=== PATIENT | male | born 1950 ===

== ENCOUNTER 2016-12-06 15:48 | Inpatient (IN) | payer MEDICARE ==
[2016-12-06 16:59] LABS: BASO # 0.1 K/uL (0.0-0.2); BASO % 0.8 % (0.0-2.0); EOS # 0.3 K/uL (0.0-0.7); EOS % 3.5 % (0.0-4.0); LYMPH # 3.4 K/uL (1.0-4.3); LYMPH % 37.2 % (20.0-40.0); MEAN CELL VOLUME 88.5 fL (80.0-94.0); MEAN CORPUSCULAR HEMOGLOBIN 29.7 pg (27.0-31.0); MEAN CORPUSCULAR HGB CONC 33.6 g/dL (33.0-37.0); MEAN PLATELET VOLUME 7.7 fL (7.2-11.7); MONO # 0.9 K/uL (0.0-0.8); MONO % 9.8 % (0.0-10.0); RED CELL DISTRIBUTION WIDTH 14.1 % (11.5-14.5); WHITE BLOOD COUNT 9.1 K/uL (4.8-10.8)
[2016-12-06 17:07] LABS: POTASSIUM 3.2 mmol/L (3.6-5.2)
[2016-12-06 17:09] LABS: BILIRUBIN,TOTAL 0.4 mg/dL (0.2-1.3); CALCIUM 8.7 mg/dl (8.6-10.4); TOTAL PROTEIN 6.4 g/dL (6.3-8.3)
[2016-12-06 17:13] LABS: RBC URINE 1 /hpf (0-3); URINE BACTERIA RARE (<OCC); URINE BILIRUBIN NEGATIVE (NEGATIVE); URINE BLOOD NEGATIVE (NEGATIVE); URINE COLOR Yellow (YELLOW); URINE GLUCOSE (UA) 3+ mg/dL (Normal); URINE KETONE NEGATIVE (NEGATIVE); URINE LEUKOCYTE ESTERASE NEG Leu/uL (Negative); URINE PROTEIN 3+ mg/dL (NEGATIVE); URINE UROBILINOGEN NORMAL mg/dL (0.2-1.0); WBC URINE 2 /hpf (0-5)
--- NOTE | 2016-12-06 17:27 | C.PDOC ---
History Of Present Illness 66 year old male with a history of Diabetes and kidney disease was referred by his PMD to the ED for likely admission and consideration for dialysis. Patient has fluid overload despite PO diuretics. He denies any physical symptoms at this time. Time Seen by Provider: 12/06/16 16:19 Chief Complaint (Nursing): Abnormal Labs History Per: Patient History/Exam Limitations: no limitations Onset/Duration Of Symptoms: Hrs Current Symptoms Are (Timing): Still Present Reports Recently: Treated By A Physician (PMD) Recent travel outside of the [place]: No Additional History Per: Prior Records Past Medical History Reviewed: Historical Data, Nursing Documentation, Vital Signs Vital Signs: Last Vital Signs Temp 98.6 F 12/06/16 16:02 Pulse 69 12/06/16 16:02 Resp 18 12/06/16 16:02 BP 129/71 12/06/16 16:02 Pulse Ox 95 12/06/16 17:32 - Medical History PMH: HTN Family History: States: Unknown Family Hx - Social History Hx Alcohol Use: No Hx Substance Use: No - Immunization History Hx Tetanus Toxoid Vaccination: No Hx Influenza Vaccination: Yes Hx Pneumococcal Vaccination: No Review Of Systems Constitutional: Negative for: Fever, Chills Cardiovascular: Negative for: Chest Pain, Palpitations Respiratory: Negative for: Cough, Shortness of Breath Gastrointestinal: Negative for: Nausea, Vomiting, Abdominal Pain, Diarrhea Physical Exam - Physical Exam Appears: Non-toxic, No Acute Distress Skin: Warm, Dry Head: Atraumatic Eye(s): bilateral: Normal Inspection, EOMI Oral Mucosa: Moist Neck: Supple Chest: Symmetrical, No Deformity Cardiovascular: Rhythm Regular Respiratory: Other (scattered crackles at bilateral bases ) Gastrointestinal/Abdominal: Soft, No Tenderness, No Distention, No Guarding, No Rebound Extremity: Normal ROM, No Tenderness, No Calf Tenderness, Capillary Refill ( good capillary refill, less than two seconds ), No Deformity, No Swelling, Other (2+ pitting edema bilateral lower extremities ) Neurological/Psych: Oriented x3, Normal Speech, Normal Cognition, Normal Motor, Normal Sensation, Normal Reflexes Gait: Steady ED Course And Treatment - Laboratory Results Result Diagrams: 12/06/16 16:53 12/06/16 16:53 O2 Sat by Pulse Oximetry: 95 (room air ) Progress Note: EKG and CXR were performed. Medical Decision Making Medical Decision Making: discussed with Dr Patten, will admit to his service. Dr Frausto for consult. Disposition Discussed With Dr.: Ko Patten Doctor Will See Patient In The: Hospital - Disposition Disposition: HOSPITALIZED Disposition Time: 17:26 Condition: SERIOUS Forms: [facility] (Ukrainian) - Clinical Impression Clinical Impression: Acute renal failure, Fluid overload, unspecified - Scribe Statement The provider has reviewed the documentation as recorded by the Scribe Esther Luevano All medical record entries made by the Scribe were at my direction and personally dictated by me. I have reviewed the chart and agree that the record accurately reflects my personal performance of the history, physical exam, medical decision making, and the department course for this patient. I have also personally directed, reviewed, and agree with the discharge instructions and disposition. Decision To Admit - Pt Status Changed To: Hospital Disposition Of: Inpatient - Admit Certification Admit to Inpatient:: After my assessment, the patient will require hospitalization for at least two midnights. This is because of the severity of symptoms shown, intensity of services needed, and/or the medical risk in this patient being treated as an outpatient. - InPatient: Physician Admission Certification: I certify that this patient requires 2 or more midnights of care for the following reason:: for possible dialysus. diuresis - . Bed Request Type: Telemetry Patient Diagnosis: Acute renal failure, Fluid overload, unspecified
--- NOTE | 2016-12-06 19:08 | CP.PCM.CON ---
History of Present Illness - History of Present Illness History of Present Illness: SURGERY CONSULT NOTE FOR DR. RIVERA 66M presents with worsening uncontrolled diabetics. Patient was sent to the hospital by his PMD to recommend starting dialysis. Surgery consulted for Permacath placement for dialysis access due to his kidney disease also. PMH: Diabetes, kidney disease, retinopathy PSH: LLE specimen removal Social: admits to social alcohol and few cigarrettes, denies illicit drugs Allergies: NKDA Past Patient History - Infectious Disease Hx of Infectious Diseases: None - Past Social History Smoking Status: Current Some Days Smoker - CARDIAC Hx Hypertension: Yes - ENDOCRINE/METABOLIC Hx Diabetes Mellitus Type 2: Yes - PSYCHIATRIC Hx Substance Use: No - SURGICAL HISTORY Hx Surgeries: Yes Other/Comment: Left lower leg debridment two years ago. - ANESTHESIA Hx Anesthesia: Yes Hx Anesthesia Reactions: No Hx Malignant Hyperthermia: No Meds Allergies/Adverse Reactions: Allergies Allergy/AdvReac Type Severity Reaction Status Date / Time No Known Allergies Allergy Verified 12/06/16 16:00 - Medications Medications: Current Medications Heparin Sodium (Porcine) (Heparin) 5,000 units SC Q8 [facility] Physical Exam - Constitutional Appears: Non-toxic, No Acute Distress - Head Exam Head Exam: ATRAUMATIC - Eye Exam Additional comments: very poor vision - ENT Exam ENT Exam: Mucous Membranes Moist - Respiratory Exam Respiratory Exam: Clear to Auscultation Bilateral, NORMAL BREATHING PATTERN - Cardiovascular Exam Cardiovascular Exam: REGULAR RHYTHM, +S1, +S2 - GI/Abdominal Exam GI & Abdominal Exam: Soft. absent: Distended, Firm, Guarding, Rebound, Rigid, Tenderness - Extremities Exam Extremities exam: Negative for: pedal edema, tenderness Additional comments: left hyatt has scar from previous operation - Neurological Exam Neurological exam: Alert, Oriented x3 - Psychiatric Exam Psychiatric exam: Normal Affect, Normal Mood - Skin Skin Exam: Dry, Intact, Normal Color, Warm Results - Vital Signs Recent Vital Signs: Last Vital Signs Temp 98.6 F 12/06/16 16:02 Pulse 69 12/06/16 16:02 Resp 16 12/06/16 17:15 BP 129/71 12/06/16 16:02 Pulse Ox 95 12/06/16 17:39 - Labs Result Diagrams: 12/06/16 16:53 12/06/16 16:53 Assessment & Plan - Assessment and Plan (Free Text) Assessment: 66M with uncontrolled diabetes, with kidney disease, needs dialysis Plan: - NPO after midnight - Labs-coags - consented - Patient to go to OR tomorrow morning Discussed with Dr. Neo Bradshaw, PGY2
--- NOTE | 2016-12-06 19:31 | RAD ---
HISTORY: worsening renal failure with fluid overload COMPARISON: None available. TECHNIQUE: Chest PA and lateral FINDINGS: Examination limited by habitus. LUNGS: Mild bibasilar atelectasis. Please note that chest x-ray has limited sensitivity for the detection of pulmonary masses. PLEURA: Right apical pleural thickening or fluid. No definite pneumothorax . CARDIOVASCULAR: Heart size appears top normal. Tortuous aorta. Atherosclerotic calcifications. OSSEOUS STRUCTURES: Degenerative changes. VISUALIZED UPPER ABDOMEN: Unremarkable. OTHER FINDINGS: None. IMPRESSION: Bibasilar atelectasis. Right apical pleural thickening or fluid.
--- NOTE | 2016-12-06 19:48 | CP.PCM.HP ---
History of Present Illness - History of Present Illness History of Present Illness: PGY1 Medicine Note for Dr. Stanford 66 year old male with a past medical history of Diabetes, CKD and HTN. Patient comes into the ED by the recommendation of Dr. Frausto who told the patient that his Creatinine was worsening, along with increased lower extremity edema. The patient states that he has been dealing with worsening renal function for a few years. He states that he retains fluid and his legs well at times, but usually he is able to go to the doctor, get lasix and have the swelling resolve. He noticed approximately 10 days ago that his legs were getting worsening and the medications were no longer helping. He states that he feels completely normal, except he says he feels fatigued at times. Patient states that he is able to walk without any feeling of being SOB. Denies f/c, n/v, d/c, cp, lightheadedness, dizziness, cough or sore throat. Patient has diabetic retinopathy and has very low to little visual acuity. Legally blind. PMH: DM, CKD, HTN, Diabetic retinopathy, Diabetic nephropathy PSH: I&D on LE Family: Mother of complications of diabetes, Father of heart problems (unknown) Social: smokes 2 cigarettes/day, denies alcohol, denies illicit drug use ALL: NKDA Present on Admission - Present on Admission Any Indicators Present on Admission: Yes History of Uncontrolled Diabetes: Yes Review of Systems - Review of Systems All systems: reviewed and no additional remarkable complaints except - Constitutional Constitutional: As Per HPI - EENT Eyes: As Per HPI Ears: As Per HPI Nose/Mouth/Throat: As Per HPI - Cardiovascular Cardiovascular: As Per HPI - Respiratory Respiratory: As Per HPI - Gastrointestinal Gastrointestinal: As Per HPI - Genitourinary Genitourinary: As Per HPI - Reproductive: Male Reproductive:Male: As Per HPI - Musculoskeletal Musculoskeletal: As Per HPI - Integumentary Integumentary: As Per HPI - Neurological Neurological: As Per HPI - Psychiatric Psychiatric: As Per HPI - Endocrine Endocrine: As Per HPI - Hematologic/Lymphatic Hematologic: As Per HPI Past Patient History - Infectious Disease Hx of Infectious Diseases: None - Past Social History Smoking Status: Current Some Days Smoker - CARDIAC Hx Hypertension: Yes - ENDOCRINE/METABOLIC Hx Diabetes Mellitus Type 2: Yes - PSYCHIATRIC Hx Substance Use: No - SURGICAL HISTORY Hx Surgeries: Yes Other/Comment: Left lower leg debridment two years ago. - ANESTHESIA Hx Anesthesia: Yes Hx Anesthesia Reactions: No Hx Malignant Hyperthermia: No Meds Allergies/Adverse Reactions: Allergies Allergy/AdvReac Type Severity Reaction Status Date / Time No Known Allergies Allergy Verified 12/06/16 16:00 Physical Exam - Constitutional Appears: Non-toxic, No Acute Distress - Head Exam Head Exam: ATRAUMATIC, NORMOCEPHALIC - Eye Exam Additional comments: Patient is blind due to diabetic retinopathy - ENT Exam ENT Exam: Mucous Membranes Moist - Respiratory Exam Respiratory Exam: Clear to Auscultation Bilateral, NORMAL BREATHING PATTERN. absent: Accessory Muscle Use, Respiratory Distress - Cardiovascular Exam Cardiovascular Exam: REGULAR RHYTHM, +S1, +S2 - GI/Abdominal Exam GI & Abdominal Exam: Normal Bowel Sounds, Soft - Extremities Exam Extremities exam: Positive for: joint swelling, pedal edema, pedal pulses present. 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 Frausto Baseline Cr 4 - elevated today at 5.4 Restarted home medications Lasix 40mg PO BID Coreg 25mg PO BID Metolazone 5mg daily Vascular Surgery Consulted - Dr. Larson - Vascular access needed to start dialysis tomorrow - On schedule at 8 am for Portacath placement - NPO at midnight - Hold heparin 6 hours prior to surgery f/u nepho/surg recs HTN Restart home meds: Lasix 40mg PO BID Coreg 25mg PO BID Metolazone 5mg daily Diabetes Restart home medication regiment Lantus 15units in AM; 30units HS Only give 12 units of Lantus tonight due to patient NPO at midnight for procedure tomorrow morning Glimepiride 4mg PO BID Diabetic Retinopathy Visually impaired Patient uses Besifloxacin HCL 5ml drops daily at home - non on formulary. Pharmacy is attempting to find proper replacement/will talk to patient to see if it is possible to bring in home medication. Case discussed with Dr. Hien Realn PGY1 - Date & Time Date: 12/06/16 Time: 17:05
[2016-12-06] MEDS ORDERED: (Lantus) Insulin Glargine, Recombinant SC SCH (22:00)
[2016-12-06] MEDS ORDERED: (Lantus) Insulin Glargine, Recombinant SC ONE (22:00)
[2016-12-07] MEDS ORDERED: Potassium Chloride 20 mEq ER Tab PO ONE (00:30)
[2016-12-07] MEDS ORDERED: metOLazone 5 MG TAB PO STA (04:21)
[2016-12-07] MEDS ORDERED: HEPARIN-NS 5,000 UNITS/500 ML 5,000 UNIT/500 ML BAG IV ONE (07:32)
[2016-12-07] MEDS ORDERED: ceFAZolin IV 2 gm in Dextrose 1 GM/50 ML BAG IVPB ONE (07:32)
[2016-12-07] MEDS ORDERED: Lidocaine 1% Inj (20ml) ONE (07:32)
[2016-12-07 07:33] LABS: INR 1.1
[2016-12-07 07:36] LABS: BASO % 0.6 % (0.0-2.0); EOS # 0.3 K/uL (0.0-0.7); EOS % 3.3 % (0.0-4.0); HEMATOCRIT 32.2 % (35.0-51.0); LYMPH # 2.6 K/uL (1.0-4.3); LYMPH % 31.6 % (20.0-40.0); MEAN CELL VOLUME 87.7 fL (80.0-94.0); MEAN CORPUSCULAR HEMOGLOBIN 29.2 pg (27.0-31.0); MEAN CORPUSCULAR HGB CONC 33.3 g/dL (33.0-37.0); MEAN PLATELET VOLUME 8.1 fL (7.2-11.7); MONO # 0.7 K/uL (0.0-0.8); MONO % 8.1 % (0.0-10.0); RED CELL DISTRIBUTION WIDTH 14.1 % (11.5-14.5); WHITE BLOOD COUNT 8.2 K/uL (4.8-10.8)
[2016-12-07 08:15] LABS: POTASSIUM 3.2 mmol/L (3.6-5.2)
[2016-12-07 08:17] LABS: ALB/GLOB RATIO 0.9 (1.0-2.1); BILIRUBIN,TOTAL 0.5 mg/dL (0.2-1.3); TOTAL PROTEIN 6.1 g/dL (6.3-8.3)
[2016-12-07 08:18] LABS: CALCIUM 8.7 mg/dl (8.6-10.4)
[2016-12-07] MEDS ORDERED: Sodium Chloride 0.9% 500 ML IV ONE (08:20)
[2016-12-07] MEDS ORDERED: Midazolam 2 MG/2 ML VIAL ONE (08:22)
[2016-12-07] MEDS: Lidocaine 1% Inj (20ml) ONE ×2 (08:40→08:58)
--- NOTE | 2016-12-07 09:18 | PCM.SURG1 ---
Surgeon's Initial Post Op Note - Surgeon's Notes Surgeon: [facility] Epidemiologist: Tha BradshawY2 Pre-Operative Diagnosis: Kidney disease Operative Findings: n/a Post-Operative Diagnosis: same Operation Performed: left Internal jugular permacath placement Specimen/Specimens Removed: n/a Estimated Blood Loss: EBL {In ML}: 10 Date of Surgery/Procedure: 12/07/16 Time of Surgery/Procedure: 08:30
--- NOTE | 2016-12-07 09:55 | RAD ---
HISTORY: s/p permacath COMPARISON: Chest x-ray performed 12/06/16 TECHNIQUE: Chest, one view. FINDINGS: Examination limited by habitus and hypoinflation. Right IJ approach central venous catheter terminates at the cavoatrial junction. LUNGS: No focal consolidation. Please note that chest x-ray has limited sensitivity for the detection of pulmonary masses. PLEURA: No significant pleural effusion identified. No definite pneumothorax . CARDIOVASCULAR: Cardiomegaly. Atherosclerotic calcifications of the aorta. OSSEOUS STRUCTURES: Degenerative changes. VISUALIZED UPPER ABDOMEN: Unremarkable. OTHER FINDINGS: None. IMPRESSION: Right IJ approach central venous catheter terminates at the cavoatrial junction.
[2016-12-07] MEDS: (Lantus) Insulin Glargine, Recombinant SC SCH ×2 (10:00→22:53)
[2016-12-07] MEDS ORDERED: metOLazone 5 MG TAB PO SCH (10:00)
[2016-12-07] MEDS ORDERED: Aritificial Tears (15ml) OU PRN (10:15)
--- NOTE | 2016-12-07 10:27 | CP.PCM.CON ---
History of Present Illness - History of Present Illness History of Present Illness: consult requested for initiation of HD 66 yo male with advancing renal failure due to DM, HTN. Now with resistance to diuretics. Pt to start HD. Has history of diabetic retinopathy and peripheral vascular disease. Decreased u/o. S/p permcath this am and first HD today. No family history of renal disease. Review of Systems - Constitutional Constitutional: Fatigue. absent: Fever - EENT Eyes: Change in Vision. absent: Itchy Eyes Nose/Mouth/Throat: absent: Nasal Congestion, Nasal Discharge - Cardiovascular Cardiovascular: Dyspnea. absent: Orthopnea, Rapid Heart Rate - Respiratory Respiratory: absent: Cough, Dyspnea - Gastrointestinal Gastrointestinal: absent: Abdominal Pain, Bloating - Genitourinary Genitourinary: absent: Difficulty Urinating - Psychiatric Psychiatric: absent: Anxiety, Behavioral Changes - Hematologic/Lymphatic Hematologic: absent: Easy Bleeding, Easy Bruising Past Patient History - Infectious Disease Hx of Infectious Diseases: None - Past Medical History & Family History Past Medical History?: Yes - Past Social History Smoking Status: Light Smoker < 10 Cigarettes Daily - CARDIAC Hx Hypertension: Yes - ENDOCRINE/METABOLIC Hx Diabetes Mellitus Type 2: Yes - MUSCULOSKELETAL/RHEUMATOLOGICAL Hx Falls: No - PSYCHIATRIC Hx Substance Use: Yes - SURGICAL HISTORY Hx Surgeries: Yes Other/Comment: Left lower leg debridment two years ago. - ANESTHESIA Hx Anesthesia: Yes Hx Anesthesia Reactions: No Hx Malignant Hyperthermia: No Meds Allergies/Adverse Reactions: Allergies Allergy/AdvReac Type Severity Reaction Status Date / Time No Known Allergies Allergy Verified 12/06/16 16:00 - Medications Medications: Current Medications Artificial Tears (Artificial Tears) 0 ml OU Q4H PRN PRN Reason: Dry eyes Aspirin (Ecotrin) 81 mg PO DAILY [facility] Carvedilol (Coreg) 25 mg PO BID [facility] Furosemide (Lasix) 40 mg PO BID [facility] Glimepiride (Amaryl) 4 mg PO BID [facility] Heparin Sodium (Porcine) (Heparin) 5,000 units SC Q8 [facility] Last Admin: 12/06/16 22:26 Dose: 5,000 units Insulin Glargine (Lantus) 15 unit SC DAILY [facility] Insulin Glargine (Lantus) 30 unit SC HS [facility] Pneumococcal Polyvalent Vaccine (Pneumovax 23 Vaccine) 0.5 ml IM .ONCE ONE Stop: 12/09/16 10:01 Rosuvastatin Calcium (Crestor) 10 mg PO HS [facility] Last Admin: 12/06/16 22:26 Dose: 10 mg Physical Exam - Constitutional Appears: Chronically Ill - Eye Exam Eye Exam: Normal appearance. absent: Scleral icterus - ENT Exam ENT Exam: Mucous Membranes Moist - Neck Exam Neck exam: Positive for: Full Rom. Negative for: Lymphadenopathy - Respiratory Exam Respiratory Exam: Decreased Breath Sounds. absent: Wheezes - Cardiovascular Exam Cardiovascular Exam: REGULAR RHYTHM. absent: Rubs - GI/Abdominal Exam GI & Abdominal Exam: Distended, Firm. absent: Tenderness - Extremities Exam Extremities exam: Positive for: pedal edema - Neurological Exam Neurological exam: Alert, Oriented x3 - Psychiatric Exam Psychiatric exam: Anxious Results - Vital Signs Recent Vital Signs: Last Vital Signs Temp 97.1 F L 12/07/16 10:00 Pulse 63 12/07/16 10:00 Resp 13 12/07/16 10:00 BP 180/87 H 12/07/16 10:00 Pulse Ox 99 12/07/16 09:29 - Labs Result Diagrams: 12/07/16 07:12 12/07/16 07:12 Labs: Laboratory Results - last 24 hr 12/06/16 12/07/16 12/07/16 21:21 06:19 07:12 WBC 8.2 RBC 3.67 L Hgb 10.7 L Hct 32.2 L MCV 87.7 MCH 29.2 MCHC 33.3 RDW 14.1 Plt Count 364 MPV 8.1 Neut % (Auto) 56.4 Lymph % (Auto) 31.6 [place] % (Auto) 8.1 Eos % (Auto) 3.3 Baso % (Auto) 0.6 Neut # 4.6 Lymph # 2.6 [place] # 0.7 Eos # 0.3 Baso # 0.0 PT INR APTT Sodium Potassium Chloride Carbon Dioxide Anion Gap BUN Creatinine Est GFR ( Amer) Est GFR (Non-Af Amer) POC Glucose (mg/dL) 141 H 114 H Random Glucose Calcium Total Bilirubin AST ALT Alkaline Phosphatase Total Protein Albumin Globulin Albumin/Globulin Ratio Triglycerides Cholesterol LDL Cholesterol Direct HDL Cholesterol 12/07/16 12/07/16 07:12 07:12 WBC RBC Hgb Hct MCV MCH MCHC RDW Plt Count MPV Neut % (Auto) Lymph % (Auto) [place] % (Auto) Eos % (Auto) Baso % (Auto) Neut # Lymph # [place] # Eos # Baso # PT 12.0 INR 1.1 APTT 33 Sodium 141 Potassium 3.2 L Chloride 101 Carbon Dioxide 28 Anion Gap 15 BUN 75 H Creatinine 5.2 H Est GFR ( Amer) 13 Est GFR (Non-Af Amer) 11 POC Glucose (mg/dL) Random Glucose 101 Calcium 8.7 Total Bilirubin 0.5 AST 14 L ALT 22 Alkaline Phosphatase 68 Total Protein 6.1 L Albumin 2.9 L Globulin 3.2 Albumin/Globulin Ratio 0.9 L Triglycerides 156 H Cholesterol 108 LDL Cholesterol Direct 43 HDL Cholesterol 31 Assessment & Plan - Assessment and Plan (Free Text) Assessment: diabetic kidney disease, to initiate HD first HD today for hetal and placement this week d/c metolozone 3 K bath on Hd
[2016-12-07 11:53] LABS: PHOSPHOROUS 5.2 mg/dL (2.5-4.5)
--- NOTE | 2016-12-07 20:50 | CP.PCM.PN ---
<Randolph Li H - Last Filed: 12/07/16 21:10> Subjective - Date & Time of Evaluation Date of Evaluation: 12/07/16 Time of Evaluation: 11:30 - Subjective Subjective: Dr. Patten service: Patient seen with his and daughter present. Unable to obtain history from patient but he is resting in bed comfortable. Plan discussed with patient's . Objective - Vital Signs/Intake and Output Vital Signs (last 24 hours): Temp Pulse Resp BP Pulse Ox 98.6 F 66 20 150/77 98 12/07/16 16:00 12/07/16 16:00 12/07/16 16:00 12/07/16 16:00 12/07/16 16:00 - Medications Medications: Current Medications Artificial Tears (Artificial Tears) 0 ml OU Q4H PRN PRN Reason: Dry eyes Aspirin (Ecotrin) 81 mg PO DAILY [facility] Carvedilol (Coreg) 25 mg PO BID [facility] Furosemide (Lasix) 40 mg PO BID [facility] Glimepiride (Amaryl) 4 mg PO BID [facility] Heparin Sodium (Porcine) (Heparin) 5,000 units SC Q8 [facility] Last Admin: 12/06/16 22:26 Dose: 5,000 units Insulin Glargine (Lantus) 15 unit SC DAILY [facility] Insulin Glargine (Lantus) 30 unit SC HS [facility] Pneumococcal Polyvalent Vaccine (Pneumovax 23 Vaccine) 0.5 ml IM .ONCE ONE Stop: 12/09/16 10:01 Rosuvastatin Calcium (Crestor) 10 mg PO HS [facility] Last Admin: 12/06/16 22:26 Dose: 10 mg - Labs Labs: 12/07/16 07:12 12/07/16 07:12 PT 12.0 SECONDS (9.7-12.2) 12/07/16 07:12 INR 1.1 12/07/16 07:12 APTT 33 SECONDS (21-34) 12/07/16 07:12 - Constitutional Appears: Non-toxic, No Acute Distress - Respiratory Exam Respiratory Exam: Clear to Ausculation Bilateral. absent: Rhonchi, Wheezes - Cardiovascular Exam Cardiovascular Exam: REGULAR RHYTHM, RRR, +S1, +S2. 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 Will need dialysis placement for discharge. Nephro consulted - Dr. Frausto Baseline Cr 4 - elevated today at 5.4 Restarted home medications Lasix 40mg PO BID Coreg 25mg PO BID Metolazone 5mg daily Vascular Surgery Consulted - Dr. Larson - Vascular access needed to start dialysis tomorrow - On schedule at 8 am for Portacath placement - NPO at midnight - Hold heparin 6 hours prior to surgery f/u nepho/surg recs HTN Restart home meds: Lasix 40mg PO BID Coreg 25mg PO BID Metolazone 5mg daily Diabetes Restart home medication regiment Lantus 15units in AM; 30units HS Only give 12 units of Lantus tonight due to patient NPO at midnight for procedure tomorrow morning Glimepiride 4mg PO BID Diabetic Retinopathy Visually impaired Patient uses Besifloxacin HCL 5ml drops daily at home - non on formulary. Pharmacy is attempting to find proper replacement/will talk to patient to see if it is possible to bring in home medication. Case discussed with Dr. Stanford <Ko Patten - Last Filed: 12/08/16 14:36> Objective - Vital Signs/Intake and Output Vital Signs (last 24 hours): Temp Pulse Resp BP Pulse Ox 98.4 F 66 20 170/91 H 96 12/08/16 10:11 12/08/16 10:11 12/08/16 10:11 12/08/16 10:48 12/08/16 10:11 Intake and Output: 12/08/16 12/08/16 06:59 18:59 Intake Total 600 Output Total 750 Balance -150 - Medications Medications: Current Medications Artificial Tears (Artificial Tears) 0 ml OU Q4H PRN PRN Reason: Dry eyes Aspirin (Ecotrin) 81 mg PO DAILY [facility] Last Admin: 12/08/16 10:48 Dose: 81 mg Carvedilol (Coreg) 25 mg PO BID [facility] Last Admin: 12/08/16 10:47 Dose: 25 mg Furosemide (Lasix) 40 mg PO BID [facility] Last Admin: 12/08/16 10:48 Dose: 40 mg Glimepiride (Amaryl) 4 mg PO BID [facility] Last Admin: 12/08/16 10:47 Dose: 4 mg Heparin Sodium (Porcine) (Heparin) 5,000 units SC Q8 [facility] Last Admin: 12/06/16 22:26 Dose: 5,000 units Insulin Glargine (Lantus) 15 unit SC DAILY [facility] Last Admin: 12/08/16 10:49 Dose: 15 units Insulin Glargine (Lantus) 30 unit SC HS [facility] Last Admin: 12/07/16 22:53 Dose: 30 units Pneumococcal Polyvalent Vaccine (Pneumovax 23 Vaccine) 0.5 ml IM .ONCE ONE Stop: 12/09/16 10:01 Rosuvastatin Calcium (Crestor) 10 mg PO HS [facility] Last Admin: 12/07/16 22:51 Dose: 10 mg - Labs Labs: 12/08/16 08:41 12/08/16 08:41 PT 12.0 SECONDS (9.7-12.2) 12/07/16 07:12 INR 1.1 12/07/16 07:12 APTT 33 SECONDS (21-34) 12/07/16 07:12 Attending/Attestation - Attestation I have personally seen and examined this patient.: Yes I have fully participated in the care of the patient.: Yes I have reviewed all pertinent clinical information, including history, physical exam and plan: Yes Notes (Text): 12/08/16 14:36 Patient was seen and examined at bedside Patient to is status post hemodialysis catheter placement Scheduled for hemodialysis today I discussed the plan of care with the resident and agree with the assessment plan recommended.
[2016-12-08] MEDS ORDERED: Potassium Chloride 20 mEq ER Tab PO ONE ×2 (00:07→23:53)
[2016-12-08 09:07] LABS: BASO % 0.4 % (0.0-2.0); EOS # 0.2 K/uL (0.0-0.7); EOS % 2.4 % (0.0-4.0); HEMATOCRIT 31.1 % (35.0-51.0); LYMPH # 2.7 K/uL (1.0-4.3); LYMPH % 29.4 % (20.0-40.0); MEAN CELL VOLUME 88.3 fL (80.0-94.0); MEAN CORPUSCULAR HEMOGLOBIN 29.1 pg (27.0-31.0); MEAN PLATELET VOLUME 8.1 fL (7.2-11.7); MONO # 1.1 K/uL (0.0-0.8); RED CELL DISTRIBUTION WIDTH 14.1 % (11.5-14.5); WHITE BLOOD COUNT 9.2 K/uL (4.8-10.8)
[2016-12-08 09:34] LABS: BILIRUBIN,TOTAL 0.3 mg/dL (0.2-1.3); CALCIUM 8.5 mg/dl (8.6-10.4); POTASSIUM 3.7 mmol/L (3.6-5.2); TOTAL PROTEIN 5.9 g/dL (6.3-8.3)
--- NOTE | 2016-12-08 09:57 | CP.PCM.PN ---
Subjective - Date & Time of Evaluation Date of Evaluation: 12/08/16 Time of Evaluation: 06:50 - Subjective Subjective: Vascular surgery Pt S&E, NAEO. No pain or swelling at Permacath site. No Complaints Objective - Vital Signs/Intake and Output Vital Signs (last 24 hours): Temp Pulse Resp BP Pulse Ox 98.1 F 65 20 165/84 H 98 12/08/16 05:00 12/08/16 07:40 12/08/16 05:00 12/08/16 05:00 12/08/16 05:00 Intake and Output: 12/08/16 12/08/16 06:59 18:59 Intake Total 600 Output Total 750 Balance -150 - Medications Medications: Current Medications Artificial Tears (Artificial Tears) 0 ml OU Q4H PRN PRN Reason: Dry eyes Aspirin (Ecotrin) 81 mg PO DAILY [facility] Carvedilol (Coreg) 25 mg PO BID [facility] Last Admin: 12/07/16 21:00 Dose: 25 mg Furosemide (Lasix) 40 mg PO BID [facility] Last Admin: 12/07/16 21:00 Dose: 40 mg Glimepiride (Amaryl) 4 mg PO BID [facility] Heparin Sodium (Porcine) (Heparin) 5,000 units SC Q8 [facility] Last Admin: 12/06/16 22:26 Dose: 5,000 units Insulin Glargine (Lantus) 15 unit SC DAILY [facility] Insulin Glargine (Lantus) 30 unit SC [facility] Last Admin: 12/07/16 22:53 Dose: 30 units Pneumococcal Polyvalent Vaccine (Pneumovax 23 Vaccine) 0.5 ml IM .ONCE ONE Stop: 12/09/16 10:01 Rosuvastatin Calcium (Crestor) 10 mg PO [facility] Last Admin: 12/07/16 22:51 Dose: 10 mg - Labs Labs: 12/08/16 08:41 12/08/16 08:41 PT 12.0 SECONDS (9.7-12.2) 12/07/16 07:12 INR 1.1 12/07/16 07:12 APTT 33 SECONDS (21-34) 12/07/16 07:12 - Constitutional Appears: Non-toxic, No Acute Distress - Head Exam Head Exam: ATRAUMATIC, NORMOCEPHALIC - Respiratory Exam Respiratory Exam: NORMAL BREATHING PATTERN Additional comments: L IJ permacath in place, no swelling, erythema, or TTP. - Neurological Exam Neurological Exam: Alert, Awake - Skin Skin Exam: Dry, Warm Assessment and Plan - Assessment and Plan (Free Text) Assessment: 66M with CKD, s/p LIJ permacath POD#1 Plan: Awaiting Vein mapping L limb alert in place D/W Dr. Neo Hull PGY4
[2016-12-08] MEDS ORDERED: metOLazone 5 MG TAB PO SCH (10:00)
[2016-12-08] MEDS: (Lantus) Insulin Glargine, Recombinant SC SCH ×2 (10:49→22:16)
--- NOTE | 2016-12-08 12:27 | OP ---
PROCEDURE DATE: 12/07/2016 PREOPERATIVE DIAGNOSIS: Renal failure. POSTOPERATIVE DIAGNOSIS: Renal failure. PROCEDURE CARRIED OUT: Placement of PermCath, right jugular vein with C-arm fluoroscopy, ultrasound guidance and micropuncture technique. SURGEON: Joselito Larson Jr., MD PROMOTION MANAGER: ____. ANESTHESIOLOGIST: Dr. Baker. INDICATIONS: The patient is a 66-year-old male with renal insufficiency, who now requires dialysis. OPERATIVE FINDINGS: Catheter was inserted uneventfully into the jugular vein. Using ultrasound guidance and micropuncture technique, the right jugular vein was cannulated. Under fluoroscopic control, a guidewire was advanced centrally. This was subsequently exchanged for an 0.035 wire and a sheath dilator was passed over this. Catheter was positioned at the tip of the superior vena cava and right atrium. Initially there were some problems with flow in the one of the ports and this was eventually adjusted and there was no problem with the flow. After this had been done, I secured the catheter to the skin and we applied dressing to the wound. Blood loss of the procedure was less than 20 mL. Operation carried out was PermCath, right jugular vein with C-arm fluoroscopy, ultrasound-guided puncture and micropuncture technique. Ultrasound images of the neck showed the vein was approximately 14 mm in diameter with normal compressibility and no evidence of intraluminal thrombosis. Joselito Larson Jr., MD
--- NOTE | 2016-12-08 15:34 | CP.PCM.PN ---
<Ko Patten M - Last Filed: 12/08/16 16:49> Objective - Vital Signs/Intake and Output Vital Signs (last 24 hours): Temp Pulse Resp BP Pulse Ox 98.6 F 66 18 181/87 H 96 12/08/16 16:17 12/08/16 16:17 12/08/16 16:17 12/08/16 16:17 12/08/16 16:17 Intake and Output: 12/08/16 12/08/16 06:59 18:59 Intake Total 600 Output Total 750 Balance -150 - Medications Medications: Current Medications Artificial Tears (Artificial Tears) 0 ml OU Q4H PRN PRN Reason: Dry eyes Aspirin (Ecotrin) 81 mg PO DAILY [facility] Last Admin: 12/08/16 10:48 Dose: 81 mg Carvedilol (Coreg) 25 mg PO BID [facility] Last Admin: 12/08/16 10:47 Dose: 25 mg Furosemide (Lasix) 40 mg PO BID [facility] Last Admin: 12/08/16 10:48 Dose: 40 mg Glimepiride (Amaryl) 4 mg PO BID [facility] Last Admin: 12/08/16 10:47 Dose: 4 mg Heparin Sodium (Porcine) (Heparin) 5,000 units SC Q8 [facility] Last Admin: 12/06/16 22:26 Dose: 5,000 units Insulin Glargine (Lantus) 15 unit SC DAILY [facility] Last Admin: 12/08/16 10:49 Dose: 15 units Insulin Glargine (Lantus) 30 unit SC HS [facility] Last Admin: 12/07/16 22:53 Dose: 30 units Pneumococcal Polyvalent Vaccine (Pneumovax 23 Vaccine) 0.5 ml IM .ONCE ONE Stop: 12/09/16 10:01 Rosuvastatin Calcium (Crestor) 10 mg PO HS [facility] Last Admin: 12/07/16 22:51 Dose: 10 mg - Labs Labs: 12/08/16 08:41 12/08/16 08:41 PT 12.0 SECONDS (9.7-12.2) 12/07/16 07:12 INR 1.1 12/07/16 07:12 APTT 33 SECONDS (21-34) 12/07/16 07:12 Attending/Attestation - Attestation I have personally seen and examined this patient.: Yes I have fully participated in the care of the patient.: Yes I have reviewed all pertinent clinical information, including history, physical exam and plan: Yes Notes (Text): 12/08/16 16:49 Patient was seen and examined at bedside Patient appears comfortable and denies any pain Patient also denies any shortness of breath He is status post hemodialysis yesterday Further plan for hemodialysis as per renal I discussed the plan of care with the resident and agree with the assessment and plan documented. <Randolph Li H - Last Filed: 12/08/16 21:46> Subjective - Date & Time of Evaluation Date of Evaluation: 12/01/16 Time of Evaluation: 10:00 - Subjective Subjective: Dr. Patten service Patient is seen in room. He has no complaints of pain, nausea, vomiting, fever , or chills. Patient is for AVF fistula tomorrow. Objective - Vital Signs/Intake and Output Vital Signs (last 24 hours): Temp Pulse Resp BP Pulse Ox 98.4 F 66 20 170/91 H 96 12/08/16 10:11 12/08/16 10:11 12/08/16 10:11 12/08/16 10:48 12/08/16 10:11 Intake and Output: 12/08/16 12/08/16 06:59 18:59 Intake Total 600 Output Total 750 Balance -150 - Medications Medications: Current Medications Artificial Tears (Artificial Tears) 0 ml OU Q4H PRN PRN Reason: Dry eyes Aspirin (Ecotrin) 81 mg PO DAILY [facility] Last Admin: 12/08/16 10:48 Dose: 81 mg Carvedilol (Coreg) 25 mg PO BID [facility] Last Admin: 12/08/16 10:47 Dose: 25 mg Furosemide (Lasix) 40 mg PO BID [facility] Last Admin: 12/08/16 10:48 Dose: 40 mg Glimepiride (Amaryl) 4 mg PO BID [facility] Last Admin: 12/08/16 10:47 Dose: 4 mg Heparin Sodium (Porcine) (Heparin) 5,000 units SC Q8 [facility] Last Admin: 12/06/16 22:26 Dose: 5,000 units Insulin Glargine (Lantus) 15 unit SC DAILY [facility] Last Admin: 12/08/16 10:49 Dose: 15 units Insulin Glargine (Lantus) 30 unit SC HS [facility] Last Admin: 12/07/16 22:53 Dose: 30 units Pneumococcal Polyvalent Vaccine (Pneumovax 23 Vaccine) 0.5 ml IM .ONCE ONE Stop: 12/09/16 10:01 Rosuvastatin Calcium (Crestor) 10 mg PO HS [facility] Last Admin: 12/07/16 22:51 Dose: 10 mg - Labs Labs: 12/08/16 08:41 12/08/16 08:41 PT 12.0 SECONDS (9.7-12.2) 12/07/16 07:12 INR 1.1 12/07/16 07:12 APTT 33 SECONDS (21-34) 12/07/16 07:12 - Constitutional Appears: Non-toxic - Respiratory Exam Respiratory Exam: Clear to Ausculation Bilateral. absent: Rales, Rhonchi, Wheezes - Cardiovascular Exam Cardiovascular Exam: REGULAR RHYTHM, RRR, +S1, +S2. absent: Gallop, Rubs - Extremities Exam Extremities Exam: absent: Calf Tenderness - Skin Skin Exam: Normal Color. 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 12/07: Patient for permacathath and dialysis today. Will need dialysis placement for discharge. Nephro consulted - Dr. Frausto Baseline Cr 4 - elevated today at 5.4 Restarted home medications Lasix 40mg PO BID Coreg 25mg PO BID Metolazone 5mg daily Vascular Surgery Consulted - Dr. Larson - Vascular access needed to start dialysis tomorrow - On schedule at 8 am for Portacath placement - NPO at midnight - Hold heparin 6 hours prior to surgery f/u nepho/surg recs HTN Restart home meds: Lasix 40mg PO BID Coreg 25mg PO BID Metolazone 5mg daily Diabetes 12/08: half of night time inslin given, will need to watch BS closely. Restart home medication regiment Lantus 15units in AM; 30units HS Only give 12 units of Lantus tonight due to patient NPO at midnight for procedure tomorrow morning Glimepiride 4mg PO BID Diabetic Retinopathy Visually impaired Patient uses Besifloxacin HCL 5ml drops daily at home - non on formulary. Pharmacy is attempting to find proper replacement/will talk to patient to see if it is possible to bring in home medication.
[2016-12-09 07:40] LABS: INR 1.1
[2016-12-09 07:45] LABS: BASO % 0.4 % (0.0-2.0); EOS # 0.3 K/uL (0.0-0.7); EOS % 2.7 % (0.0-4.0); HEMATOCRIT 33.1 % (35.0-51.0); LYMPH # 2.7 K/uL (1.0-4.3); LYMPH % 28.4 % (20.0-40.0); MEAN CELL VOLUME 88.8 fL (80.0-94.0); MEAN CORPUSCULAR HEMOGLOBIN 29.3 pg (27.0-31.0); MEAN CORPUSCULAR HGB CONC 32.9 g/dL (33.0-37.0); MONO # 1.1 K/uL (0.0-0.8); MONO % 11.2 % (0.0-10.0); RED CELL DISTRIBUTION WIDTH 14.1 % (11.5-14.5); WHITE BLOOD COUNT 9.6 K/uL (4.8-10.8)
[2016-12-09 07:54] LABS: POTASSIUM 3.5 mmol/L (3.6-5.2)
[2016-12-09 07:56] LABS: BILIRUBIN,TOTAL 0.6 mg/dL (0.2-1.3)
[2016-12-09 07:57] LABS: CALCIUM 8.8 mg/dl (8.6-10.4); MAGNESIUM 1.7 mg/dL (1.6-2.3); TOTAL PROTEIN 6.5 g/dL (6.3-8.3)
[2016-12-09] MEDS: (Lantus) Insulin Glargine, Recombinant SC SCH ×2 (09:47→22:24)
[2016-12-09] MEDS ORDERED: Pneumococcal 23-Valent Vaccine IM ONE (10:00)
[2016-12-09] MEDS ORDERED: HEPARIN-NS 5,000 UNITS/500 ML 5,000 UNIT/500 ML BAG IV ONE (10:51)
[2016-12-09] MEDS ORDERED: ceFAZolin IV 1 gm in Dextrose 1 GM/50 ML BAG IVPB ONE (10:52)
[2016-12-09] MEDS ORDERED: Propofol 10 mg/ml Inj (20 ML) ONE (10:53)
[2016-12-09] MEDS ORDERED: Midazolam 2 MG/2 ML VIAL ONE (10:53)
[2016-12-09] MEDS ORDERED: ePHEDrine 50 mg/ml Inj ONE (10:59)
[2016-12-09] MEDS ORDERED: Succinylcholine Chloride 20 mg/ml Syr (5 ml) IV ONE (10:59)
[2016-12-09] MEDS ORDERED: Lidocaine Hydrochloride 5 ML INJ ONE (10:59)
[2016-12-09] MEDS ORDERED: Phenylephrine 10 mg/ml Inj ONE (10:59)
[2016-12-09] MEDS ORDERED: Atropine 0.4 mg/ml Inj (1 mL) ONE (10:59)
[2016-12-09] MEDS ORDERED: Sodium Chloride 0.9% 1,000 ML IV ONE (12:00)
[2016-12-09] MEDS ORDERED: ceFAZolin 1 gm FROZEN Premix 1 GM/50 ML ML IVPB ONE (12:36)
[2016-12-09] MEDS ORDERED: Papaverine Hydrochloride 30 mg/ml (2ml) ONE (12:55)
[2016-12-09] MEDS ORDERED: Sodium Chloride 0.9% 500 ML IV ONE (13:45)
--- NOTE | 2016-12-09 14:15 | PCM.SURG1 ---
Surgeon's Initial Post Op Note - Surgeon's Notes Surgeon: Neo Strap Maker: MARCI BradshawY2. Soraida Ojeda MS3 Pre-Operative Diagnosis: Renal failure Operative Findings: n/a Post-Operative Diagnosis: same Operation Performed: Jose AV fistula Specimen/Specimens Removed: n/a Estimated Blood Loss: EBL {In ML}: 10 Date of Surgery/Procedure: 12/09/16 Time of Surgery/Procedure: 12:30
--- NOTE | 2016-12-09 15:02 | CP.PCM.PN ---
Subjective - Date & Time of Evaluation Date of Evaluation: 12/09/16 Time of Evaluation: 15:01 - Subjective Subjective: een and examined leg swelling resolved tolerated hd well friday for hetal surgery today Objective - Vital Signs/Intake and Output Vital Signs (last 24 hours): Temp Pulse Resp BP Pulse Ox 99.1 F 69 12 143/72 100 12/09/16 14:14 12/09/16 14:30 12/09/16 14:30 12/09/16 14:30 12/09/16 14:30 Intake and Output: 12/09/16 12/09/16 06:59 18:59 Intake Total 400 Output Total 1275 Balance -875 - Medications Medications: Current Medications Artificial Tears (Artificial Tears) 0 ml OU Q4H PRN PRN Reason: Dry eyes Aspirin (Ecotrin) 81 mg PO DAILY [facility] Last Admin: 12/08/16 10:48 Dose: 81 mg Carvedilol (Coreg) 25 mg PO BID [facility] Last Admin: 12/09/16 09:47 Dose: 25 mg Furosemide (Lasix) 40 mg PO BID [facility] Last Admin: 12/09/16 09:49 Dose: 40 mg Glimepiride (Amaryl) 4 mg PO BID [facility] Last Admin: 12/08/16 19:00 Dose: 4 mg Heparin Sodium (Porcine) (Heparin) 5,000 units SC Q8 [facility] Last Admin: 12/06/16 22:26 Dose: 5,000 units Insulin Glargine (Lantus) 15 unit SC DAILY [facility] Last Admin: 12/09/16 09:47 Dose: Not Given Insulin Glargine (Lantus) 30 unit SC [facility] Last Admin: 12/08/16 22:16 Dose: 15 units Morphine Sulfate (Morphine) 1 mg IVP Q10M PRN PRN Reason: Pain, severe (8-10) Stop: 12/09/16 16:23 Oxycodone/Acetaminophen (Percocet 5/325 Mg Tab) 1 tab PO Q4H PRN PRN Reason: Pain, moderate (4-7) Stop: 12/12/16 14:17 Rosuvastatin Calcium (Crestor) 10 mg PO [facility] Last Admin: 12/08/16 22:10 Dose: 10 mg - Labs Labs: 12/09/16 07:21 12/09/16 07:21 PT 12.3 SECONDS (9.7-12.2) H 12/09/16 07:21 INR 1.1 12/09/16 07:21 APTT 33 SECONDS (21-34) 12/09/16 07:21 - Constitutional Appears: Non-toxic, No Acute Distress - Head Exam Head Exam: NORMAL INSPECTION - Eye Exam Eye Exam: Normal appearance - ENT Exam ENT Exam: Mucous Membranes Moist, Normal Exam - Neck Exam Neck Exam: Normal Inspection - Respiratory Exam Respiratory Exam: Clear to Ausculation Bilateral, NORMAL BREATHING PATTERN - Cardiovascular Exam Cardiovascular Exam: RRR - GI/Abdominal Exam GI & Abdominal Exam: Distended, Soft - Extremities Exam Extremities Exam: Normal Inspection Assessment and Plan (1) ESRD (end stage renal disease) Status: Acute (2) Anemia Status: Acute (3) Hypertension Status: Acute (4) Diabetic nephropathies Status: Acute - Assessment and Plan (Free Text) Assessment: maintain hd [facility] [employer] [facility] calcitriol outpt placement
--- NOTE | 2016-12-09 15:12 | RAD ---
PROCEDURE: Intraoperative Fluoroscopy. HISTORY: RENAL FAILURE FINDINGS: Fluoroscopic assistance was provided. Approximately 85.2 seconds fluoroscopy time utilized during this procedure. Radiation dose = 18.33 mGy. Please refer to the operative report from
--- NOTE | 2016-12-09 18:38 | CP.PCM.PN ---
<John David - Last Filed: 12/09/16 18:35> Subjective - Date & Time of Evaluation Date of Evaluation: 12/09/16 Time of Evaluation: 07:00 - Subjective Subjective: PGY1 Medicine Note for Dr. Calles Patient seen and examined at [facility] this morning. Patient is currently NPO because he is schedule with Dr. Larson later today for an AV fistula. Patient has no complaints at this time. Denies f/c, n/v, d/c, sob or cp. Objective - Vital Signs/Intake and Output Vital Signs (last 24 hours): Temp Pulse Resp BP Pulse Ox 98.5 F 69 12 156/83 H 100 12/09/16 15:30 12/09/16 15:30 12/09/16 15:30 12/09/16 15:30 12/09/16 15:30 Intake and Output: 12/09/16 12/09/16 06:59 18:59 Intake Total 400 Output Total 1275 Balance -875 - Medications Medications: Current Medications Artificial Tears (Artificial Tears) 0 ml OU Q4H PRN PRN Reason: Dry eyes Aspirin (Ecotrin) 81 mg PO DAILY [facility] Last Admin: 12/09/16 10:00 Dose: Not Given Carvedilol (Coreg) 25 mg PO BID [facility] Last Admin: 12/09/16 09:47 Dose: 25 mg Glimepiride (Amaryl) 4 mg PO BID [facility] Last Admin: 12/09/16 10:00 Dose: Not Given Heparin Sodium (Porcine) (Heparin) 5,000 units SC Q8 [facility] Last Admin: 12/06/16 22:26 Dose: 5,000 units Insulin Glargine (Lantus) 15 unit SC DAILY [facility] Last Admin: 12/09/16 09:47 Dose: Not Given Insulin Glargine (Lantus) 30 unit SC [facility] Last Admin: 12/08/16 22:16 Dose: 15 units Oxycodone/Acetaminophen (Percocet 5/325 Mg Tab) 1 tab PO Q4H PRN PRN Reason: Pain, moderate (4-7) Stop: 12/12/16 14:17 Rosuvastatin Calcium (Crestor) 10 mg PO HS [facility] Last Admin: 12/08/16 22:10 Dose: 10 mg - Labs Labs: 12/09/16 07:21 12/09/16 07:21 PT 12.3 SECONDS (9.7-12.2) H 12/09/16 07:21 INR 1.1 12/09/16 07:21 APTT 33 SECONDS (21-34) 12/09/16 07:21 - Constitutional Appears: Non-toxic, No Acute Distress - Head Exam Head Exam: ATRAUMATIC, NORMOCEPHALIC - Eye Exam Additional comments: Patient is 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 - ENT Exam ENT Exam: Mucous Membranes Moist - Respiratory Exam Respiratory Exam: Clear to Ausculation Bilateral, NORMAL BREATHING PATTERN. absent: Accessory Muscle Use, Respiratory Distress - Cardiovascular Exam Cardiovascular Exam: REGULAR RHYTHM, +S1, +S2 - GI/Abdominal Exam GI & Abdominal Exam: Soft, Normal Bowel Sounds. 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 Larson. Will f/ u surgical recs. 12/08: AV fistula tomorrow and then dialysis afterward. 12/07: Patient for permacathath and dialysis today. Will need dialysis placement for discharge. Nephro consulted - Dr. Frausto Baseline Cr 4 - elevated today at 5.4 Restarted home medications Lasix 40mg PO BID Coreg 25mg PO BID Metolazone 5mg daily Vascular Surgery Consulted - Dr. Larson f/u nepho/surg recs HTN Lasix 40mg PO BID Coreg 25mg PO BID Metolazone 5mg daily Diabetes 12/08: half of night time inslin given, will need to watch BS closely. Restart home medication regiment Lantus 15units in AM; 30units HS Glimepiride 4mg PO BID Diabetic Retinopathy Visually impaired Patient uses Besifloxacin HCL 5ml drops daily at home - non on formulary. Pharmacy is attempting to find proper replacement/will talk to patient to see if it is possible to bring in home medication. Case Discussed with Dr. Marli Realn PGY1 <Calles,Peter H - Last Filed: 12/10/16 07:14> Objective - Vital Signs/Intake and Output Vital Signs (last 24 hours): Temp Pulse Resp BP Pulse Ox 98.6 F 70 20 157/82 H 95 12/10/16 04:15 12/10/16 04:15 12/10/16 04:15 12/10/16 04:15 12/10/16 00:00 Intake and Output: 12/10/16 12/10/16 06:59 18:59 Intake Total 240 Output Total 500 Balance -260 - Medications Medications: Current Medications Artificial Tears (Artificial Tears) 0 ml OU Q4H PRN PRN Reason: Dry eyes Aspirin (Ecotrin) 81 mg PO DAILY [facility] Last Admin: 12/09/16 10:00 Dose: Not Given Carvedilol (Coreg) 25 mg PO BID [facility] Last Admin: 12/09/16 21:49 Dose: 25 mg Glimepiride (Amaryl) 4 mg PO BID [facility] Last Admin: 12/09/16 21:49 Dose: 4 mg Heparin Sodium (Porcine) (Heparin) 5,000 units SC Q8 [facility] Last Admin: 12/06/16 22:26 Dose: 5,000 units Insulin Glargine (Lantus) 15 unit SC DAILY [facility] Last Admin: 12/09/16 09:47 Dose: Not Given Insulin Glargine (Lantus) 30 unit SC HS [facility] Last Admin: 12/09/16 22:24 Dose: Not Given Oxycodone/Acetaminophen (Percocet 5/325 Mg Tab) 1 tab PO Q4H PRN PRN Reason: Pain, moderate (4-7) Stop: 12/12/16 14:17 Last Admin: 12/09/16 21:49 Dose: 1 tab Rosuvastatin Calcium (Crestor) 10 mg PO HS [facility] Last Admin: 12/09/16 21:49 Dose: 10 mg - Labs Labs: 12/09/16 07:21 12/09/16 07:21 PT 12.3 SECONDS (9.7-12.2) H 12/09/16 07:21 INR 1.1 12/09/16 07:21 APTT 33 SECONDS (21-34) 12/09/16 07:21 Attending/Attestation - Attestation I have personally seen and examined this patient.: Yes I have fully participated in the care of the patient.: Yes I have reviewed all pertinent clinical information, including history, physical exam and plan: Yes Notes (Text): Medical Attending: Patient was seen and examined by me, agree with the above note by the resident. The patient currently is getting dialysis via a permacath and is pending AV fistula placement Jerome Calles
[2016-12-09 19:18] LABS: CALCIUM 9.1 mg/dL (8.6-10.3)
[2016-12-09] MEDS: Oxycodone/Acetaminophen 5/325 mg Tab PO PRN (21:49)
[2016-12-09] MEDS ORDERED: (Lantus) Insulin Glargine, Recombinant SC ONE (22:23)
--- NOTE | 2016-12-09 23:54 | CARD ---
APPROVED REPORT EKG Measurement Heart [id number] ND [id number] <Conclusion> Sinus rhythm with 1st degree AV block Right bundle branch block Left anterior fascicular block Bifascicular block Abnormal ECG
[2016-12-10] MEDS ORDERED: Potassium Chloride 20 mEq ER Tab PO STA (00:13)
--- NOTE | 2016-12-10 02:49 | OP ---
PROCEDURE DATE: 12/09/2016 PREOPERATIVE DIAGNOSIS: Renal failure. POSTOPERATIVE DIAGNOSIS: Renal failure. PROCEDURE: Radiocephalic (Jose) fistula, left wrist. SURGEON: Dr. Larson. INTEGRITY ASSESSOR: *------*. ANESTHESIA ADMINISTERED BY: Donnie Marielle. The patient is an older middle-aged man with renal insufficiency, diabetes who now requires dialysis, recently had a catheter inserted. OPERATIVE FINDINGS: There was no cephalic vein in the upper portion of the arm at the wrist; however, there is a fairly good vein. The superficial radial artery had a weak pulse, so we went from the radial artery and the radial artery is very spasmodic. DESCRIPTION OF PROCEDURE: The patient was given general anesthesia and intravenous antibiotics. The arm was prepped and draped with Hibiclens. Vein mapping was carried out and the veins were identified. As I said, we discarded the idea of doing a snuffbox fistula because of poor pulsations, although present pulsations in the superficial radial artery. We then dissected out the radial artery at the wrist and we dissected out the adjacent cephalic vein. In a spatulated fashion using loop magnification, heparin anticoagulation anastomosis was carried out. There was excellent flow through the fistula. A tributary branch in the mid portion of the arm was then ligated. Blood loss in the procedure was approximately 10 mL to 15 mL. There were no operative complications. The heparin was not reversed at the end. The operation carried out is radiocephalic fistula, left wrist (Jose). Joselito Larson Jr., MD cc: Chris Rasmussen MD
[2016-12-10 07:20] LABS: BASO # 0.1 K/uL (0.0-0.2); BASO % 0.8 % (0.0-2.0); EOS # 0.3 K/uL (0.0-0.7); HEMATOCRIT 33.3 % (35.0-51.0); LYMPH # 2.8 K/uL (1.0-4.3); LYMPH % 26.7 % (20.0-40.0); MEAN CORPUSCULAR HGB CONC 32.6 g/dL (33.0-37.0); MEAN PLATELET VOLUME 7.7 fL (7.2-11.7); MONO # 1.3 K/uL (0.0-0.8); MONO % 12.2 % (0.0-10.0); RED CELL DISTRIBUTION WIDTH 13.7 % (11.5-14.5); WHITE BLOOD COUNT 10.4 K/uL (4.8-10.8)
[2016-12-10] MEDS: Oxycodone/Acetaminophen 5/325 mg Tab PO PRN ×2 (08:06→17:44)
[2016-12-10 08:13] LABS: POTASSIUM 3.6 mmol/L (3.6-5.2)
[2016-12-10 08:15] LABS: BILIRUBIN,TOTAL 0.7 mg/dL (0.2-1.3)
[2016-12-10 08:16] LABS: TOTAL PROTEIN 6.5 g/dL (6.3-8.3)
[2016-12-10 08:17] LABS: CALCIUM 8.8 mg/dl (8.6-10.4)
--- NOTE | 2016-12-10 09:19 | CP.PCM.PN ---
<John David - Last Filed: 12/10/16 16:22> Subjective - Date & Time of Evaluation Date of Evaluation: 12/10/16 Time of Evaluation: 09:16 - Subjective Subjective: PGY1 Medicine Note for Dr. Calles Patient seen and examined this morning at bedside. Patient states he is in no pain and currently has no complaints. Patient is tolerating his diet. Denies f/c , n/v, d/c, sob or cp. Objective - Vital Signs/Intake and Output Vital Signs (last 24 hours): Temp Pulse Resp BP Pulse Ox 98.6 F 73 20 165/84 H 95 12/10/16 04:15 12/10/16 09:07 12/10/16 04:15 12/10/16 09:07 12/10/16 00:00 Intake and Output: 12/10/16 12/10/16 06:59 18:59 Intake Total 240 Output Total 500 Balance -260 - Medications Medications: Current Medications Artificial Tears (Artificial Tears) 0 ml OU Q4H PRN PRN Reason: Dry eyes Aspirin (Ecotrin) 81 mg PO DAILY [facility] Last Admin: 12/09/16 10:00 Dose: Not Given Carvedilol (Coreg) 25 mg PO BID [facility] Last Admin: 12/09/16 21:49 Dose: 25 mg Glimepiride (Amaryl) 4 mg PO BID [facility] Last Admin: 12/09/16 21:49 Dose: 4 mg Heparin Sodium (Porcine) (Heparin) 5,000 units SC Q8 [facility] Last Admin: 12/06/16 22:26 Dose: 5,000 units Insulin Glargine (Lantus) 15 unit SC DAILY [facility] Last Admin: 12/09/16 09:47 Dose: Not Given Insulin Glargine (Lantus) 30 unit SC HS [facility] Last Admin: 12/09/16 22:24 Dose: Not Given Oxycodone/Acetaminophen (Percocet 5/325 Mg Tab) 1 tab PO Q4H PRN PRN Reason: Pain, moderate (4-7) Stop: 12/12/16 14:17 Last Admin: 12/10/16 08:06 Dose: 1 tab Rosuvastatin Calcium (Crestor) 10 mg PO HS [facility] Last Admin: 12/09/16 21:49 Dose: 10 mg - Labs Labs: 12/10/16 07:09 12/10/16 07:09 PT 12.3 SECONDS (9.7-12.2) H 12/09/16 07:21 INR 1.1 12/09/16 07:21 APTT 33 SECONDS (21-34) 12/09/16 07:21 - Constitutional Appears: Non-toxic, No Acute Distress - Eye Exam Additional comments: Patient legally blind. - ENT Exam ENT Exam: Mucous Membranes Moist - Respiratory Exam Respiratory Exam: Clear to Ausculation Bilateral, NORMAL BREATHING PATTERN. absent: Accessory Muscle Use, Rales, Wheezes, Respiratory Distress - Cardiovascular Exam Cardiovascular Exam: REGULAR RHYTHM, +S1, +S2 - GI/Abdominal Exam GI & Abdominal Exam: Soft, Normal Bowel Sounds. 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 Larson. Will f/ u surgical recs. 12/08: AV fistula tomorrow and then dialysis afterward. 12/07: Patient for permacathath and dialysis today. Will need dialysis placement for discharge. Nephro consulted - Dr. Frausto Baseline Cr 4 - elevated today at 5.4 Restarted home medications Lasix 40mg PO BID Coreg 25mg PO BID Metolazone 5mg daily Vascular Surgery Consulted - Dr. Larson f/u nepho/surg recs HTN Lasix 40mg PO BID Coreg 25mg PO BID Metolazone 5mg daily Diabetes 12/08: half of night time inslin given, will need to watch BS closely. Restart home medication regiment Lantus 15units in AM; 30units HS Glimepiride 4mg PO BID Diabetic Retinopathy Visually impaired Patient uses Besifloxacin HCL 5ml drops daily at home - non on formulary. Pharmacy is attempting to find proper replacement/will talk to patient to see if it is possible to bring in home medication. Case Discussed with Dr. Marli David PGY1 <Jerome Calles - Last Filed: 12/10/16 16:40> Objective - Vital Signs/Intake and Output Vital Signs (last 24 hours): Temp Pulse Resp BP Pulse Ox 98.5 F 69 20 162/80 H 96 12/10/16 15:05 12/10/16 15:05 12/10/16 15:05 12/10/16 15:05 12/10/16 15:05 Intake and Output: 12/10/16 12/10/16 06:59 18:59 Intake Total 240 400 Output Total 500 400 Balance -260 0 - Medications Medications: Current Medications Artificial Tears (Artificial Tears) 0 ml OU Q4H PRN PRN Reason: Dry eyes Aspirin (Ecotrin) 81 mg PO DAILY [facility] Last Admin: 12/10/16 10:23 Dose: 81 mg Carvedilol (Coreg) 25 mg PO BID [facility] Last Admin: 12/10/16 10:23 Dose: 25 mg Glimepiride (Amaryl) 4 mg PO BID [facility] Last Admin: 12/10/16 10:23 Dose: 4 mg Heparin Sodium (Porcine) (Heparin) 5,000 units SC Q8 [facility] Last Admin: 12/06/16 22:26 Dose: 5,000 units Insulin Glargine (Lantus) 15 unit SC DAILY [facility] Last Admin: 12/10/16 10:23 Dose: 15 units Insulin Glargine (Lantus) 30 unit SC HS [facility] Last Admin: 12/09/16 22:24 Dose: Not Given Oxycodone/Acetaminophen (Percocet 5/325 Mg Tab) 1 tab PO Q4H PRN PRN Reason: Pain, moderate (4-7) Stop: 12/12/16 14:17 Last Admin: 12/10/16 08:06 Dose: 1 tab Rosuvastatin Calcium (Crestor) 10 mg PO HS [facility] Last Admin: 12/09/16 21:49 Dose: 10 mg - Labs Labs: 12/10/16 07:09 12/10/16 07:09 PT 12.3 SECONDS (9.7-12.2) H 12/09/16 07:21 INR 1.1 12/09/16 07:21 APTT 33 SECONDS (21-34) 12/09/16 07:21 Attending/Attestation - Attestation I have personally seen and examined this patient.: Yes I have fully participated in the care of the patient.: Yes I have reviewed all pertinent clinical information, including history, physical exam and plan: Yes Notes (Text): 12/10/16 16:38 Medical attending: Patient was seen and examined by me, agrees the above note by emergency medical services coordinator. The patient is status post placement of left fistula. His fingers felt warm on exam, he also had a small thrill as well. When we asked him if he was having a lot of pain the patient stated that he does have pain but it is currently controlled at this time. Thank you very much, at this moment be waiting on hemodialysis placement. Jerome Calles
--- NOTE | 2016-12-10 09:47 | CP.PCM.PN ---
Subjective - Date & Time of Evaluation Date of Evaluation: 12/10/16 Time of Evaluation: 07:00 - Subjective Subjective: SURGERY NOTE FOR DR. RIVERA 66M seen and examined at bedside. Patient only complain of pain on the incision site. no hand pain. Objective - Vital Signs/Intake and Output Vital Signs (last 24 hours): Temp Pulse Resp BP Pulse Ox 98.6 F 73 20 165/84 H 95 12/10/16 04:15 12/10/16 09:07 12/10/16 04:15 12/10/16 09:07 12/10/16 00:00 Intake and Output: 12/10/16 12/10/16 06:59 18:59 Intake Total 240 Output Total 500 Balance -260 - Medications Medications: Current Medications Artificial Tears (Artificial Tears) 0 ml OU Q4H PRN PRN Reason: Dry eyes Aspirin (Ecotrin) 81 mg PO DAILY [facility] Last Admin: 12/09/16 10:00 Dose: Not Given Carvedilol (Coreg) 25 mg PO BID [facility] Last Admin: 12/09/16 21:49 Dose: 25 mg Glimepiride (Amaryl) 4 mg PO BID [facility] Last Admin: 12/09/16 21:49 Dose: 4 mg Heparin Sodium (Porcine) (Heparin) 5,000 units SC Q8 [facility] Last Admin: 12/06/16 22:26 Dose: 5,000 units Insulin Glargine (Lantus) 15 unit SC DAILY [facility] Last Admin: 12/09/16 09:47 Dose: Not Given Insulin Glargine (Lantus) 30 unit SC HS [facility] Last Admin: 12/09/16 22:24 Dose: Not Given Oxycodone/Acetaminophen (Percocet 5/325 Mg Tab) 1 tab PO Q4H PRN PRN Reason: Pain, moderate (4-7) Stop: 12/12/16 14:17 Last Admin: 12/10/16 08:06 Dose: 1 tab Rosuvastatin Calcium (Crestor) 10 mg PO [facility] Last Admin: 12/09/16 21:49 Dose: 10 mg - Labs Labs: 12/10/16 07:09 12/10/16 07:09 PT 12.3 SECONDS (9.7-12.2) H 12/09/16 07:21 INR 1.1 12/09/16 07:21 APTT 33 SECONDS (21-34) 12/09/16 07:21 - Constitutional Appears: Non-toxic, No Acute Distress - Neck Exam Additional comments: right permacath in place, dressing CDI - Respiratory Exam Respiratory Exam: Clear to Ausculation Bilateral, NORMAL BREATHING PATTERN - Cardiovascular Exam Cardiovascular Exam: REGULAR RHYTHM, +S1, +S2 - Extremities Exam Additional comments: left hand site of AVF dressing CDI. Thrill is palpable, no discoloration of hand - Neurological Exam Neurological Exam: Alert, Awake Assessment and Plan - Assessment and Plan (Free Text) Assessment: 66M s/p right IJ permacath placement POD 3, S/P left arm AVF POD1 Plan: - Monitor dressings on both site - continue to palpate for thrill - use permacath for dialysis access Discussed with Dr. Neo Bradshaw, PGY2
[2016-12-10] MEDS: (Lantus) Insulin Glargine, Recombinant SC SCH ×2 (10:23→21:35)
--- NOTE | 2016-12-10 16:10 | CP.PCM.PN ---
Subjective - Date & Time of Evaluation Date of Evaluation: 12/10/16 Time of Evaluation: 16:09 - Subjective Subjective: no complaints feels well slight pain in left wrist, avf fiistula site Objective - Vital Signs/Intake and Output Vital Signs (last 24 hours): Temp Pulse Resp BP Pulse Ox 98.5 F 69 20 162/80 H 96 12/10/16 15:05 12/10/16 15:05 12/10/16 15:05 12/10/16 15:05 12/10/16 15:05 Intake and Output: 12/10/16 12/10/16 06:59 18:59 Intake Total 240 400 Output Total 500 400 Balance -260 0 - Medications Medications: Current Medications Artificial Tears (Artificial Tears) 0 ml OU Q4H PRN PRN Reason: Dry eyes Aspirin (Ecotrin) 81 mg PO DAILY [facility] Last Admin: 12/10/16 10:23 Dose: 81 mg Carvedilol (Coreg) 25 mg PO BID [facility] Last Admin: 12/10/16 10:23 Dose: 25 mg Glimepiride (Amaryl) 4 mg PO BID [facility] Last Admin: 12/10/16 10:23 Dose: 4 mg Heparin Sodium (Porcine) (Heparin) 5,000 units SC Q8 [facility] Last Admin: 12/06/16 22:26 Dose: 5,000 units Insulin Glargine (Lantus) 15 unit SC DAILY [facility] Last Admin: 12/10/16 10:23 Dose: 15 units Insulin Glargine (Lantus) 30 unit SC HS [facility] Last Admin: 12/09/16 22:24 Dose: Not Given Oxycodone/Acetaminophen (Percocet 5/325 Mg Tab) 1 tab PO Q4H PRN PRN Reason: Pain, moderate (4-7) Stop: 12/12/16 14:17 Last Admin: 12/10/16 08:06 Dose: 1 tab Rosuvastatin Calcium (Crestor) 10 mg PO [facility] Last Admin: 12/09/16 21:49 Dose: 10 mg - Labs Labs: 12/10/16 07:09 12/10/16 07:09 PT 12.3 SECONDS (9.7-12.2) H 12/09/16 07:21 INR 1.1 12/09/16 07:21 APTT 33 SECONDS (21-34) 12/09/16 07:21 - Constitutional Appears: Non-toxic, No Acute Distress - Head Exam Head Exam: NORMAL INSPECTION - Eye Exam Eye Exam: Normal appearance - ENT Exam ENT Exam: Mucous Membranes Moist, Normal Exam - Neck Exam Neck Exam: Normal Inspection - Respiratory Exam Respiratory Exam: Clear to Ausculation Bilateral (lue avf, dressing minimal thrill), NORMAL BREATHING PATTERN - Cardiovascular Exam Cardiovascular Exam: REGULAR RHYTHM - GI/Abdominal Exam GI & Abdominal Exam: Soft, Normal Bowel Sounds - Extremities Exam Extremities Exam: Normal Inspection - Neurological Exam Neurological Exam: Alert, Oriented x3 Assessment and Plan (1) ESRD (end stage renal disease) Status: Acute (2) Anemia Status: Acute (3) Hypertension Status: Acute (4) Diabetic nephropathies Status: Acute - Assessment and Plan (Free Text) Assessment: maintain hd [facility] outpt placement
--- NOTE | 2016-12-11 06:16 | CP.PCM.PN ---
<John David - Last Filed: 12/11/16 13:32> Subjective - Date & Time of Evaluation Date of Evaluation: 12/11/16 Time of Evaluation: 06:15 - Subjective Subjective: PGY1 Medicine Note for Dr. Calles Patient seen and examined at [facility] this morning. Patient states he is feel well and does not have any pain or complaints at this time. He does not want to go to a subacute rehab. He states he will not go and wants to go home with his . Denies f/c, n/v, d/c, sob or cp. Objective - Vital Signs/Intake and Output Vital Signs (last 24 hours): Temp Pulse Resp BP Pulse Ox 98.2 F 70 20 167/80 H 96 12/11/16 01:00 12/11/16 04:00 12/11/16 01:00 12/11/16 01:00 12/11/16 01:00 Intake and Output: 12/10/16 12/11/16 18:59 06:59 Intake Total 400 Output Total 400 Balance 0 - Medications Medications: Current Medications Artificial Tears (Artificial Tears) 0 ml OU Q4H PRN PRN Reason: Dry eyes Aspirin (Ecotrin) 81 mg PO DAILY [facility] Last Admin: 12/10/16 10:23 Dose: 81 mg Carvedilol (Coreg) 25 mg PO BID [facility] Last Admin: 12/10/16 17:42 Dose: 25 mg Glimepiride (Amaryl) 4 mg PO BID [facility] Last Admin: 12/10/16 17:42 Dose: 4 mg Heparin Sodium (Porcine) (Heparin) 5,000 units SC Q8 [facility] Last Admin: 12/06/16 22:26 Dose: 5,000 units Insulin Glargine (Lantus) 15 unit SC DAILY [facility] Last Admin: 12/10/16 10:23 Dose: 15 units Insulin Glargine (Lantus) 30 unit SC [facility] Last Admin: 12/10/16 21:35 Dose: 30 units Oxycodone/Acetaminophen (Percocet 5/325 Mg Tab) 1 tab PO Q4H PRN PRN Reason: Pain, moderate (4-7) Stop: 12/12/16 14:17 Last Admin: 12/10/16 17:44 Dose: 1 tab Rosuvastatin Calcium (Crestor) 10 mg PO [facility] Last Admin: 12/10/16 21:30 Dose: 10 mg - Labs Labs: 12/10/16 07:09 12/10/16 07:09 PT 12.3 SECONDS (9.7-12.2) H 12/09/16 07:21 INR 1.1 12/09/16 07:21 APTT 33 SECONDS (21-34) 12/09/16 07:21 - Constitutional Appears: Non-toxic, No Acute Distress - Head Exam Head Exam: ATRAUMATIC, NORMOCEPHALIC - Eye Exam Additional comments: Legally blind - Respiratory Exam Respiratory Exam: Clear to Ausculation Bilateral, NORMAL BREATHING PATTERN. absent: Accessory Muscle Use, Rhonchi, Wheezes, Respiratory Distress - Cardiovascular Exam Cardiovascular Exam: REGULAR RHYTHM, +S1, +S2 - GI/Abdominal Exam GI & Abdominal Exam: Soft, Normal Bowel Sounds. 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 Larson. Will f/ u surgical recs. 12/08: AV fistula tomorrow and then dialysis afterward. 12/07: Patient for permacathath and dialysis today. Will need dialysis placement for discharge. Nephro consulted - Dr. Frausto Baseline Cr 4 - elevated today at 5.4 Restarted home medications Lasix 40mg PO BID Coreg 25mg PO BID Metolazone 5mg daily Vascular Surgery Consulted - Dr. Larson f/u nepho/surg recs HTN Lasix 40mg PO BID Coreg 25mg PO BID Metolazone 5mg daily Diabetes 12/08: half of night time inslin given, will need to watch BS closely. Restart home medication regiment Lantus 15units in AM; 30units HS Glimepiride 4mg PO BID Diabetic Retinopathy Visually impaired Patient uses Besifloxacin HCL 5ml drops daily at home - non on formulary. Pharmacy is attempting to find proper replacement/will talk to patient to see if it is possible to bring in home medication. Patient awaiting outpatient placement for Dialysis Case Discussed with Dr. Marli David PGY1 <Jerome Calles H - Last Filed: 12/11/16 18:06> Objective - Vital Signs/Intake and Output Vital Signs (last 24 hours): Temp Pulse Resp BP Pulse Ox 99.1 F 76 20 151/85 H 95 12/11/16 15:04 12/11/16 15:04 12/11/16 15:04 12/11/16 17:57 12/11/16 15:04 Intake and Output: 12/11/16 12/11/16 06:59 18:59 Intake Total 120 350 Output Total 775 500 Balance -655 -150 - Medications Medications: Current Medications Artificial Tears (Artificial Tears) 0 ml OU Q4H PRN PRN Reason: Dry eyes Aspirin (Ecotrin) 81 mg PO DAILY [facility] Last Admin: 12/11/16 13:24 Dose: 81 mg Carvedilol (Coreg) 25 mg PO BID [facility] Last Admin: 12/11/16 17:57 Dose: 25 mg Glimepiride (Amaryl) 4 mg PO BID [facility] Last Admin: 12/11/16 17:57 Dose: 4 mg Heparin Sodium (Porcine) (Heparin) 5,000 units SC Q8 [facility] Last Admin: 12/06/16 22:26 Dose: 5,000 units Insulin Glargine (Lantus) 15 unit SC DAILY [facility] Last Admin: 12/11/16 10:55 Dose: Not Given Insulin Glargine (Lantus) 30 unit SC HS [facility] Last Admin: 12/10/16 21:35 Dose: 30 units Oxycodone/Acetaminophen (Percocet 5/325 Mg Tab) 1 tab PO Q4H PRN PRN Reason: Pain, moderate (4-7) Stop: 12/12/16 14:17 Last Admin: 12/10/16 17:44 Dose: 1 tab Potassium Chloride (K-Dur 20 Meq Er Tab) 40 meq PO DAILY [facility] Last Admin: 12/11/16 13:24 Dose: 40 meq Rosuvastatin Calcium (Crestor) 10 mg PO HS [facility] Last Admin: 12/10/16 21:30 Dose: 10 mg - Labs Labs: 12/11/16 07:34 12/11/16 07:34 PT 12.3 SECONDS (9.7-12.2) H 12/09/16 07:21 INR 1.1 12/09/16 07:21 APTT 33 SECONDS (21-34) 12/09/16 07:21 Attending/Attestation - Attestation I have personally seen and examined this patient.: Yes I have fully participated in the care of the patient.: Yes I have reviewed all pertinent clinical information, including history, physical exam and plan: Yes Notes (Text): 12/11/16 18:01 Medical Attending: Patient was seen and examined by me. Agree with the above note by the resident. The patient was seen during HD, he did not have any new question at this time. As mentioned above he just had left AV fistula created. On exam he did not have bleeding, the dressing was dry and intact. His left hand was warm and he was able to squeeze my hand as well. At this time pending outpatient placement for HD thank you, Jerome Calles
[2016-12-11 07:41] LABS: BASO # 0.1 K/uL (0.0-0.2); BASO % 0.5 % (0.0-2.0); EOS # 0.3 K/uL (0.0-0.7); EOS % 2.8 % (0.0-4.0); HEMATOCRIT 31.6 % (35.0-51.0); LYMPH # 2.6 K/uL (1.0-4.3); LYMPH % 24.5 % (20.0-40.0); MEAN CELL VOLUME 88.9 fL (80.0-94.0); MEAN CORPUSCULAR HEMOGLOBIN 29.5 pg (27.0-31.0); MEAN CORPUSCULAR HGB CONC 33.2 g/dL (33.0-37.0); MONO # 1.3 K/uL (0.0-0.8); MONO % 12.5 % (0.0-10.0); RED CELL DISTRIBUTION WIDTH 13.5 % (11.5-14.5); WHITE BLOOD COUNT 10.8 K/uL (4.8-10.8)
[2016-12-11 07:57] LABS: POTASSIUM 3.5 mmol/L (3.6-5.2)
[2016-12-11 07:59] LABS: ALB/GLOB RATIO 0.9 (1.0-2.1); BILIRUBIN,TOTAL 0.6 mg/dL (0.2-1.3); TOTAL PROTEIN 6.5 g/dL (6.3-8.3)
[2016-12-11 08:00] LABS: CALCIUM 8.7 mg/dl (8.6-10.4)
--- NOTE | 2016-12-11 08:11 | CP.PCM.PN ---
Subjective - Date & Time of Evaluation Date of Evaluation: 12/11/16 Time of Evaluation: 07:15 - Subjective Subjective: SURGERY NOTE FOR DR. RIVERA 66M seen and examined at bedside. Patient state decrease in pain at incision site. Denies any acute events overnight. Objective - Vital Signs/Intake and Output Vital Signs (last 24 hours): Temp Pulse Resp BP Pulse Ox 98.2 F 70 20 167/80 H 96 12/11/16 01:00 12/11/16 04:00 12/11/16 01:00 12/11/16 01:00 12/11/16 01:00 Intake and Output: 12/11/16 12/11/16 06:59 18:59 Intake Total 120 Output Total 775 Balance -655 - Medications Medications: Current Medications Artificial Tears (Artificial Tears) 0 ml OU Q4H PRN PRN Reason: Dry eyes Aspirin (Ecotrin) 81 mg PO DAILY [facility] Last Admin: 12/10/16 10:23 Dose: 81 mg Carvedilol (Coreg) 25 mg PO BID [facility] Last Admin: 12/10/16 17:42 Dose: 25 mg Glimepiride (Amaryl) 4 mg PO BID [facility] Last Admin: 12/10/16 17:42 Dose: 4 mg Heparin Sodium (Porcine) (Heparin) 5,000 units SC Q8 [facility] Last Admin: 12/06/16 22:26 Dose: 5,000 units Insulin Glargine (Lantus) 15 unit SC DAILY [facility] Last Admin: 12/10/16 10:23 Dose: 15 units Insulin Glargine (Lantus) 30 unit SC [facility] Last Admin: 12/10/16 21:35 Dose: 30 units Oxycodone/Acetaminophen (Percocet 5/325 Mg Tab) 1 tab PO Q4H PRN PRN Reason: Pain, moderate (4-7) Stop: 12/12/16 14:17 Last Admin: 12/10/16 17:44 Dose: 1 tab Rosuvastatin Calcium (Crestor) 10 mg PO [facility] Last Admin: 12/10/16 21:30 Dose: 10 mg - Labs Labs: 12/11/16 07:34 12/10/16 07:09 PT 12.3 SECONDS (9.7-12.2) H 12/09/16 07:21 INR 1.1 12/09/16 07:21 APTT 33 SECONDS (21-34) 12/09/16 07:21 - Constitutional Appears: Non-toxic, No Acute Distress - Neck Exam Additional comments: right IJ permacath site CDI - Respiratory Exam Respiratory Exam: Clear to Ausculation Bilateral, NORMAL BREATHING PATTERN - Cardiovascular Exam Cardiovascular Exam: REGULAR RHYTHM, +S1, +S2 - Extremities Exam Additional comments: left arm AVF incision/dressing site CDI palpable thrill Assessment and Plan - Assessment and Plan (Free Text) Assessment: 66M s/p right IJ permacath POD4, s/p AVF POD2 - patient can receive dialysis at [facility] site - Await AVF maturation - Awaiting placement for patient for DC Further recs discuss with Dr. Neo Bradshaw, PGY2
[2016-12-11] MEDS: (Lantus) Insulin Glargine, Recombinant SC SCH ×2 (10:55→21:39)
[2016-12-11] MEDS: Potassium Chloride 20 mEq ER Tab PO SCH ×2 (10:55→13:24)
--- NOTE | 2016-12-11 14:51 | CP.PCM.PN ---
Subjective - Date & Time of Evaluation Date of Evaluation: 12/11/16 Time of Evaluation: 13:00 - Subjective Subjective: offers no complaints tolerated HD, 2 kg uf no chest pain no sob no abdominal pain no edema no rash no headache no dysuria no fever no arthralgias Objective - Vital Signs/Intake and Output Vital Signs (last 24 hours): Temp Pulse Resp BP Pulse Ox 98.7 F 68 15 153/96 H 98 12/11/16 09:15 12/11/16 12:00 12/11/16 11:30 12/11/16 12:15 12/11/16 12:15 Intake and Output: 12/11/16 12/11/16 06:59 18:59 Intake Total 120 Output Total 775 Balance -655 - Medications Medications: Current Medications Artificial Tears (Artificial Tears) 0 ml OU Q4H PRN PRN Reason: Dry eyes Aspirin (Ecotrin) 81 mg PO DAILY [facility] Last Admin: 12/11/16 13:24 Dose: 81 mg Carvedilol (Coreg) 25 mg PO BID [facility] Last Admin: 12/11/16 10:55 Dose: Not Given Glimepiride (Amaryl) 4 mg PO BID [facility] Last Admin: 12/11/16 10:55 Dose: Not Given Heparin Sodium (Porcine) (Heparin) 5,000 units SC Q8 [facility] Last Admin: 12/06/16 22:26 Dose: 5,000 units Insulin Glargine (Lantus) 15 unit SC DAILY [facility] Last Admin: 12/11/16 10:55 Dose: Not Given Insulin Glargine (Lantus) 30 unit SC [facility] Last Admin: 12/10/16 21:35 Dose: 30 units Oxycodone/Acetaminophen (Percocet 5/325 Mg Tab) 1 tab PO Q4H PRN PRN Reason: Pain, moderate (4-7) Stop: 12/12/16 14:17 Last Admin: 12/10/16 17:44 Dose: 1 tab Potassium Chloride (K-Dur 20 Meq Er Tab) 40 meq PO DAILY [facility] Last Admin: 12/11/16 13:24 Dose: 40 meq Rosuvastatin Calcium (Crestor) 10 mg PO [facility] Last Admin: 12/10/16 21:30 Dose: 10 mg - Labs Labs: 12/11/16 07:34 12/11/16 07:34 PT 12.3 SECONDS (9.7-12.2) H 12/09/16 07:21 INR 1.1 12/09/16 07:21 APTT 33 SECONDS (21-34) 12/09/16 07:21 - Constitutional Appears: Non-toxic - Head Exam Head Exam: ATRAUMATIC - Eye Exam Additional comments: legally blind - ENT Exam ENT Exam: Mucous Membranes Moist - Respiratory Exam Respiratory Exam: absent: Chest Wall Tenderness - Cardiovascular Exam Cardiovascular Exam: REGULAR RHYTHM. absent: Rubs - GI/Abdominal Exam GI & Abdominal Exam: Soft, Normal Bowel Sounds - Extremities Exam Extremities Exam: Pedal Edema Additional comments: left hetal with good bruit - Neurological Exam Neurological Exam: Alert Assessment and Plan - Assessment and Plan (Free Text) Assessment: new esrd dm htn has hetal and permcath can d/c when placement set up continue to challenge EDW
[2016-12-12 06:52] LABS: BASO # 0.1 K/uL (0.0-0.2); BASO % 0.6 % (0.0-2.0); EOS # 0.3 K/uL (0.0-0.7); EOS % 3.1 % (0.0-4.0); HEMATOCRIT 32.7 % (35.0-51.0); LYMPH # 2.4 K/uL (1.0-4.3); MEAN CELL VOLUME 88.7 fL (80.0-94.0); MEAN CORPUSCULAR HEMOGLOBIN 29.4 pg (27.0-31.0); MEAN CORPUSCULAR HGB CONC 33.2 g/dL (33.0-37.0); MEAN PLATELET VOLUME 7.9 fL (7.2-11.7); MONO # 1.2 K/uL (0.0-0.8); MONO % 13.2 % (0.0-10.0); NRBC % 0.1 % (0.0-2.0); RED CELL DISTRIBUTION WIDTH 13.6 % (11.5-14.5); WHITE BLOOD COUNT 9.2 K/uL (4.8-10.8)
[2016-12-12 07:42] LABS: POTASSIUM 3.6 mmol/L (3.6-5.2)
--- NOTE | 2016-12-12 07:42 | CP.PCM.PN ---
<John David - Last Filed: 12/12/16 13:54> Subjective - Date & Time of Evaluation Date of Evaluation: 12/12/16 Time of Evaluation: 07:30 - Subjective Subjective: PGY1 Medicine Note for Dr. Calles Patient seen and examined at [facility] this morning. Patient states he does not have any pain or complaints at this time except mild pain over his left wrist ( site of av fistula. He is tolerating his diet. Denies f/c, n/v, d/c, sob or cp. Objective - Vital Signs/Intake and Output Vital Signs (last 24 hours): Temp Pulse Resp BP Pulse Ox 97.8 F 74 20 161/89 H 98 12/12/16 04:40 12/12/16 04:40 12/12/16 04:40 12/12/16 04:40 12/12/16 04:40 Intake and Output: 12/12/16 12/12/16 06:59 18:59 Intake Total 120 Balance 120 - Medications Medications: Current Medications Artificial Tears (Artificial Tears) 0 ml OU Q4H PRN PRN Reason: Dry eyes Aspirin (Ecotrin) 81 mg PO DAILY [facility] Last Admin: 12/11/16 13:24 Dose: 81 mg Carvedilol (Coreg) 25 mg PO BID [facility] Last Admin: 12/11/16 17:57 Dose: 25 mg Glimepiride (Amaryl) 4 mg PO BID [facility] Last Admin: 12/11/16 17:57 Dose: 4 mg Heparin Sodium (Porcine) (Heparin) 5,000 units SC Q8 [facility] Last Admin: 12/06/16 22:26 Dose: 5,000 units Insulin Glargine (Lantus) 15 unit SC DAILY [facility] Last Admin: 12/11/16 10:55 Dose: Not Given Insulin Glargine (Lantus) 30 unit SC HS [facility] Last Admin: 12/11/16 21:39 Dose: 30 units Oxycodone/Acetaminophen (Percocet 5/325 Mg Tab) 1 tab PO Q4H PRN PRN Reason: Pain, moderate (4-7) Stop: 12/12/16 14:17 Last Admin: 12/10/16 17:44 Dose: 1 tab Potassium Chloride (K-Dur 20 Meq Er Tab) 40 meq PO DAILY [facility] Last Admin: 12/11/16 13:24 Dose: 40 meq Rosuvastatin Calcium (Crestor) 10 mg PO HS [facility] Last Admin: 12/11/16 21:39 Dose: 10 mg - Labs Labs: 12/12/16 06:39 12/11/16 07:34 PT 12.3 SECONDS (9.7-12.2) H 12/09/16 07:21 INR 1.1 12/09/16 07:21 APTT 33 SECONDS (21-34) 12/09/16 07:21 - Constitutional Appears: Non-toxic, No Acute Distress - Head Exam Head Exam: ATRAUMATIC, NORMOCEPHALIC - Eye Exam Additional comments: 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 - ENT Exam ENT Exam: Mucous Membranes Moist - Respiratory Exam Respiratory Exam: Clear to Ausculation Bilateral, NORMAL BREATHING PATTERN. absent: Accessory Muscle Use, Respiratory Distress - Cardiovascular Exam Cardiovascular Exam: REGULAR RHYTHM, +S1, +S2 - GI/Abdominal Exam GI & Abdominal Exam: Soft, Normal Bowel Sounds. absent: Distended, Guarding, Rigid, Tenderness - Extremities Exam Extremities Exam: absent: Calf Tenderness, Pedal Edema Additional comments: Palpable thrill over left wrist in place of AV fistula formation. LE pitting edema improved. Trace edema on left LE. 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 Still currently awaiting placement for outpatient dialysis. 12/09: Patient is schedule for AV fistula later today with Dr. Larson. Will f/ u surgical recs. 12/08: AV fistula tomorrow and then dialysis afterward. 12/07: Patient for permacathath and dialysis today. Will need dialysis placement for discharge. Nephro consulted - Dr. Frausto Baseline Cr 4 - elevated today at 5.4 Restarted home medications Lasix 40mg PO BID Coreg 25mg PO BID Metolazone 5mg daily Vascular Surgery Consulted - Dr. Larson f/u nepho/surg recs HTN Lasix 40mg PO BID Coreg 25mg PO BID Metolazone 5mg daily Diabetes 12/08: half of night time inslin given, will need to watch BS closely. Restart home medication regiment Lantus 15units in AM; 30units HS Glimepiride 4mg PO BID Diabetic Retinopathy Visually impaired Patient uses Besifloxacin HCL 5ml drops daily at home - non on formulary. Pharmacy is attempting to find proper replacement/will talk to patient to see if it is possible to bring in home medication. Patient awaiting outpatient placement for Dialysis. Once placement is secure, D/ C home with . Patient refuses to go to anywhere but home. Case Discussed with Dr. Marli Lopez Joann PGY1 <Jerome Calles H - Last Filed: 12/12/16 17:07> Objective - Vital Signs/Intake and Output Vital Signs (last 24 hours): Temp Pulse Resp BP Pulse Ox 98 F 71 20 187/90 H 99 12/12/16 16:29 12/12/16 16:29 12/12/16 16:29 12/12/16 16:29 12/12/16 16:29 Intake and Output: 12/12/16 12/12/16 06:59 18:59 Intake Total 120 600 Output Total 800 Balance 120 -200 - Medications Medications: Current Medications Amlodipine Besylate (Norvasc) 5 mg PO DAILY [facility] Artificial Tears (Artificial Tears) 0 ml OU Q4H PRN PRN Reason: Dry eyes Aspirin (Ecotrin) 81 mg PO DAILY [facility] Last Admin: 12/12/16 10:55 Dose: 81 mg Carvedilol (Coreg) 25 mg PO BID [facility] Last Admin: 12/12/16 10:55 Dose: 25 mg Glimepiride (Amaryl) 4 mg PO BID [facility] Last Admin: 12/12/16 10:55 Dose: 4 mg Heparin Sodium (Porcine) (Heparin) 5,000 units SC Q8 [facility] Last Admin: 12/06/16 22:26 Dose: 5,000 units Hydralazine HCl (Apresoline) 50 mg PO BID [facility] Insulin Glargine (Lantus) 15 unit SC DAILY [facility] Last Admin: 12/12/16 10:56 Dose: 15 units Insulin Glargine (Lantus) 30 unit SC HS [facility] Last Admin: 12/11/16 21:39 Dose: 30 units Potassium Chloride (K-Dur 20 Meq Er Tab) 40 meq PO DAILY [facility] Last Admin: 12/12/16 10:55 Dose: 40 meq Rosuvastatin Calcium (Crestor) 10 mg PO HS [facility] Last Admin: 12/11/16 21:39 Dose: 10 mg - Labs Labs: 12/12/16 06:39 12/12/16 06:39 PT 12.3 SECONDS (9.7-12.2) H 12/09/16 07:21 INR 1.1 12/09/16 07:21 APTT 33 SECONDS (21-34) 12/09/16 07:21 Attending/Attestation - Attestation I have personally seen and examined this patient.: Yes I have fully participated in the care of the patient.: Yes I have reviewed all pertinent clinical information, including history, physical exam and plan: Yes Notes (Text): Medical attending: Agree with the above note by the resident. Patient was seen and examined by me as well. He was not in any acute distress or discomfort when we saw patient The patient reported pain was controlled - and that he did not have any weakness in hand strength on left arm AV fistula. At this time pending on HD placement. thank you Jerome Calles
[2016-12-12 07:44] LABS: ALB/GLOB RATIO 0.9 (1.0-2.1); BILIRUBIN,TOTAL 0.6 mg/dL (0.2-1.3); TOTAL PROTEIN 6.4 g/dL (6.3-8.3)
[2016-12-12 07:45] LABS: CALCIUM 8.8 mg/dl (8.6-10.4)
[2016-12-12] MEDS ORDERED: metOLazone 5 MG TAB PO SCH (10:00)
[2016-12-12] MEDS: Potassium Chloride 20 mEq ER Tab PO SCH (10:55)
[2016-12-12] MEDS: (Lantus) Insulin Glargine, Recombinant SC SCH ×2 (10:56→21:50)
--- NOTE | 2016-12-12 12:32 | CP.PCM.PN ---
Subjective - Date & Time of Evaluation Date of Evaluation: 12/12/16 Time of Evaluation: 12:29 - Subjective Subjective: hd yesterday still w/ pain in left forearm Objective - Vital Signs/Intake and Output Vital Signs (last 24 hours): Temp Pulse Resp BP Pulse Ox 98.3 F 73 20 175/81 H 96 12/12/16 07:20 12/12/16 12:14 12/12/16 07:20 12/12/16 10:55 12/12/16 07:20 Intake and Output: 12/12/16 12/12/16 06:59 18:59 Intake Total 120 Balance 120 - Medications Medications: Current Medications Artificial Tears (Artificial Tears) 0 ml OU Q4H PRN PRN Reason: Dry eyes Aspirin (Ecotrin) 81 mg PO DAILY [facility] Last Admin: 12/12/16 10:55 Dose: 81 mg Carvedilol (Coreg) 25 mg PO BID [facility] Last Admin: 12/12/16 10:55 Dose: 25 mg Furosemide (Lasix) 40 mg PO BID [facility] Last Admin: 12/12/16 10:55 Dose: 40 mg Glimepiride (Amaryl) 4 mg PO BID [facility] Last Admin: 12/12/16 10:55 Dose: 4 mg Heparin Sodium (Porcine) (Heparin) 5,000 units SC Q8 [facility] Last Admin: 12/06/16 22:26 Dose: 5,000 units Insulin Glargine (Lantus) 15 unit SC DAILY [facility] Last Admin: 12/12/16 10:56 Dose: 15 units Insulin Glargine (Lantus) 30 unit SC [facility] Last Admin: 12/11/16 21:39 Dose: 30 units Metolazone (Zaroxolyn) 5 mg PO DAILY [facility] Last Admin: 12/12/16 10:56 Dose: 5 mg Oxycodone/Acetaminophen (Percocet 5/325 Mg Tab) 1 tab PO Q4H PRN PRN Reason: Pain, moderate (4-7) Stop: 12/12/16 14:17 Last Admin: 12/10/16 17:44 Dose: 1 tab Potassium Chloride (K-Dur 20 Meq Er Tab) 40 meq PO DAILY [facility] Last Admin: 12/12/16 10:55 Dose: 40 meq Rosuvastatin Calcium (Crestor) 10 mg PO HS [facility] Last Admin: 12/11/16 21:39 Dose: 10 mg - Labs Labs: 12/12/16 06:39 12/12/16 06:39 PT 12.3 SECONDS (9.7-12.2) H 12/09/16 07:21 INR 1.1 12/09/16 07:21 APTT 33 SECONDS (21-34) 12/09/16 07:21 - Constitutional Appears: Non-toxic, No Acute Distress, Chronically Ill - Head Exam Head Exam: NORMAL INSPECTION - Eye Exam Eye Exam: Normal appearance Additional comments: blind both eyes - ENT Exam ENT Exam: Mucous Membranes Moist, Normal Exam - Neck Exam Neck Exam: Normal Inspection - Respiratory Exam Respiratory Exam: Clear to Ausculation Bilateral, NORMAL BREATHING PATTERN - Cardiovascular Exam Cardiovascular Exam: REGULAR RHYTHM, RRR - GI/Abdominal Exam GI & Abdominal Exam: Soft, Normal Bowel Sounds - Extremities Exam Extremities Exam: Normal Inspection Assessment and Plan (1) ESRD (end stage renal disease) Status: Acute (2) Anemia Status: Acute (3) Hypertension Status: Acute (4) Diabetic nephropathies Status: Acute - Assessment and Plan (Free Text) Assessment: maintain hd mwf await placement dc diuretics add po hydralazine and norvasc for bp
[2016-12-12] MEDS: Oxycodone/Acetaminophen 5/325 mg Tab PO PRN (17:25)
[2016-12-13 07:28] LABS: BASO # 0.1 K/uL (0.0-0.2); BASO % 0.6 % (0.0-2.0); EOS # 0.4 K/uL (0.0-0.7); HEMATOCRIT 31.1 % (35.0-51.0); LYMPH # 2.2 K/uL (1.0-4.3); LYMPH % 22.7 % (20.0-40.0); MEAN CELL VOLUME 87.8 fL (80.0-94.0); MEAN CORPUSCULAR HEMOGLOBIN 29.8 pg (27.0-31.0); MEAN CORPUSCULAR HGB CONC 33.9 g/dL (33.0-37.0); MEAN PLATELET VOLUME 7.9 fL (7.2-11.7); MONO # 1.1 K/uL (0.0-0.8); MONO % 11.3 % (0.0-10.0); RED CELL DISTRIBUTION WIDTH 13.7 % (11.5-14.5); WHITE BLOOD COUNT 9.6 K/uL (4.8-10.8)
[2016-12-13 07:45] LABS: POTASSIUM 3.7 mmol/L (3.6-5.2)
[2016-12-13 07:47] LABS: BILIRUBIN,TOTAL 0.6 mg/dL (0.2-1.3)
[2016-12-13 07:48] LABS: ALB/GLOB RATIO 0.9 (1.0-2.1); CALCIUM 9.1 mg/dl (8.6-10.4); TOTAL PROTEIN 6.7 g/dL (6.3-8.3)
--- NOTE | 2016-12-13 09:51 | CP.PCM.PN ---
Subjective - Date & Time of Evaluation Date of Evaluation: 12/13/16 Time of Evaluation: 09:49 - Subjective Subjective: seen and examined denies any nausea vomiting diarrhea sob chest pain dizzines headache. pain in left forearm, avf site Objective - Vital Signs/Intake and Output Vital Signs (last 24 hours): Temp Pulse Resp BP Pulse Ox 98.3 F 70 20 178/85 H 98 12/13/16 08:36 12/13/16 08:36 12/13/16 08:36 12/13/16 08:36 12/13/16 08:36 Intake and Output: 12/13/16 12/13/16 06:59 18:59 Intake Total 100 Balance 100 - Medications Medications: Current Medications Amlodipine Besylate (Norvasc) 10 mg PO DAILY [facility] Artificial Tears (Artificial Tears) 0 ml OU Q4H PRN PRN Reason: Dry eyes Aspirin (Ecotrin) 81 mg PO DAILY [facility] Last Admin: 12/12/16 10:55 Dose: 81 mg Carvedilol (Coreg) 25 mg PO BID [facility] Last Admin: 12/13/16 08:19 Dose: 25 mg Glimepiride (Amaryl) 4 mg PO BID [facility] Last Admin: 12/12/16 17:25 Dose: 4 mg Heparin Sodium (Porcine) (Heparin) 5,000 units SC Q8 [facility] Last Admin: 12/06/16 22:26 Dose: 5,000 units Hydralazine HCl (Apresoline) 50 mg PO BID [facility] Last Admin: 12/13/16 08:18 Dose: 50 mg Insulin Glargine (Lantus) 15 unit SC DAILY [facility] Last Admin: 12/12/16 10:56 Dose: 15 units Insulin Glargine (Lantus) 30 unit SC HS [facility] Last Admin: 12/12/16 21:50 Dose: Not Given Oxycodone/Acetaminophen (Percocet 5/325 Mg Tab) 1 tab PO Q6H PRN PRN Reason: Pain, severe (8-10) Stop: 12/15/16 17:13 Last Admin: 12/12/16 17:25 Dose: 1 tab Potassium Chloride (K-Dur 20 Meq Er Tab) 40 meq PO DAILY [facility] Last Admin: 12/12/16 10:55 Dose: 40 meq Rosuvastatin Calcium (Crestor) 10 mg PO HS [facility] Last Admin: 12/12/16 21:50 Dose: 10 mg - Labs Labs: 12/13/16 07:00 12/13/16 07:00 PT 12.3 SECONDS (9.7-12.2) H 12/09/16 07:21 INR 1.1 12/09/16 07:21 APTT 33 SECONDS (21-34) 12/09/16 07:21 - Constitutional Appears: Non-toxic, No Acute Distress, Chronically Ill - Head Exam Head Exam: NORMAL INSPECTION - Eye Exam Eye Exam: Normal appearance (blind) - ENT Exam ENT Exam: Mucous Membranes Moist, Normal Exam - Neck Exam Neck Exam: Normal Inspection - Respiratory Exam Respiratory Exam: Clear to Ausculation Bilateral, NORMAL BREATHING PATTERN - Cardiovascular Exam Cardiovascular Exam: REGULAR RHYTHM, RRR (rt chest permcath) - GI/Abdominal Exam GI & Abdominal Exam: Distended, Soft, Normal Bowel Sounds - Extremities Exam Extremities Exam: Normal Inspection Assessment and Plan (1) ESRD (end stage renal disease) Status: Acute (2) Anemia Status: Acute (3) Hypertension Status: Acute (4) Diabetic nephropathies Status: Acute - Assessment and Plan (Free Text) Assessment: add losartan, increase norvasc to 10mg daily. hd today stable for dc once hd outpt placement obtained
[2016-12-13] MEDS: Potassium Chloride 20 mEq ER Tab PO SCH (12:40)
[2016-12-13] MEDS: (Lantus) Insulin Glargine, Recombinant SC SCH ×2 (12:40→22:43)
--- NOTE | 2016-12-13 14:58 | CP.PCM.PN ---
<John David - Last Filed: 12/13/16 14:55> Subjective - Date & Time of Evaluation Date of Evaluation: 12/13/16 Time of Evaluation: 06:45 - Subjective Subjective: PGY1 Medicine Note for Dr. Calles PGY1 Medicine Note for Dr. Calles Patient seen and examined at [facility] this morning. Patient states he does not have any pain or complaints at this time Today is the patient's dialysis day. He reiterated that he will not go to any acute rehab and would like to be discharged home once he has placement for dialysis. He is tolerating his diet. Denies f/c, n/v, d/c, sob or cp. Objective - Vital Signs/Intake and Output Vital Signs (last 24 hours): Temp Pulse Resp BP Pulse Ox 97.8 F 68 18 106/58 L 96 12/13/16 09:30 12/13/16 12:30 12/13/16 09:30 12/13/16 12:30 12/13/16 12:30 Intake and Output: 12/13/16 12/13/16 06:59 18:59 Intake Total 100 Balance 100 - Medications Medications: Current Medications Amlodipine Besylate (Norvasc) 10 mg PO DAILY [facility] Last Admin: 12/13/16 12:40 Dose: Not Given Artificial Tears (Artificial Tears) 0 ml OU Q4H PRN PRN Reason: Dry eyes Aspirin (Ecotrin) 81 mg PO DAILY [facility] Last Admin: 12/13/16 12:40 Dose: Not Given Carvedilol (Coreg) 25 mg PO BID [facility] Last Admin: 12/13/16 10:03 Dose: Not Given Glimepiride (Amaryl) 4 mg PO BID [facility] Last Admin: 12/13/16 12:40 Dose: Not Given Heparin Sodium (Porcine) (Heparin) 5,000 units SC Q8 [facility] Last Admin: 12/06/16 22:26 Dose: 5,000 units Hydralazine HCl (Apresoline) 50 mg PO BID [facility] Last Admin: 12/13/16 10:03 Dose: Not Given Insulin Glargine (Lantus) 15 unit SC DAILY [facility] Last Admin: 12/13/16 12:40 Dose: Not Given Insulin Glargine (Lantus) 30 unit SC HS [facility] Last Admin: 12/12/16 21:50 Dose: Not Given Losartan Potassium (Cozaar) 25 mg PO DAILY [facility] Last Admin: 12/13/16 12:39 Dose: Not Given Oxycodone/Acetaminophen (Percocet 5/325 Mg Tab) 1 tab PO Q6H PRN PRN Reason: Pain, severe (8-10) Stop: 12/15/16 17:13 Last Admin: 12/12/16 17:25 Dose: 1 tab Potassium Chloride (K-Dur 20 Meq Er Tab) 40 meq PO DAILY [facility] Last Admin: 12/13/16 12:40 Dose: Not Given Rosuvastatin Calcium (Crestor) 10 mg PO HS [facility] Last Admin: 12/12/16 21:50 Dose: 10 mg - Labs Labs: 12/13/16 07:00 12/13/16 07:00 PT 12.3 SECONDS (9.7-12.2) H 12/09/16 07:21 INR 1.1 12/09/16 07:21 APTT 33 SECONDS (21-34) 12/09/16 07:21 - Constitutional Appears: Non-toxic, No Acute Distress - Head Exam Head Exam: ATRAUMATIC, NORMOCEPHALIC - Eye Exam Eye Exam: absent: Normal appearance (Patient is legally blind due to diabetic retinopathy.) - ENT Exam ENT Exam: Mucous Membranes Moist - Respiratory Exam Respiratory Exam: Clear to Ausculation Bilateral, NORMAL BREATHING PATTERN. absent: Accessory Muscle Use, Rales, Wheezes, Respiratory Distress - Cardiovascular Exam Cardiovascular Exam: REGULAR RHYTHM, +S1, +S2 - GI/Abdominal Exam GI & Abdominal Exam: Soft, Normal Bowel Sounds. absent: Distended, Guarding, Rigid, Tenderness - Extremities Exam Extremities Exam: Normal Inspection (LE edema resolved.). 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 Still awaiting placement. 12/11: Patient received dialysis (scheduled MWF). Still currently awaiting placement for outpatient dialysis. 12/09: Patient is schedule for AV fistula later today with Dr. Larson. Will f/ u surgical recs. 12/08: AV fistula tomorrow and then dialysis afterward. 12/07: Patient for permacathath and dialysis today. Will need dialysis placement for discharge. Nephro consulted - Dr. Frausto Baseline Cr 4 - elevated today at 4.9 dc'd Lasix 40mg PO BID dc'd Metolazone 5mg daily Coreg 25mg PO BID Vascular Surgery Consulted - Dr. Larson f/u nepho/surg recs HTN Per Dr. Frausto recs dc'd Lasix 40mg PO BID dc'd Metolazone 5mg daily continued Coreg 25mg PO BID Started on Norvasc 5mg PO daily Started on Hydralazine 50mg PO BID Diabetes 12/08: half of night time inslin given, will need to watch BS closely. Restart home medication regiment Lantus 15units in AM; 30units HS Glimepiride 4mg PO BID Diabetic Retinopathy Visually impaired Patient uses Besifloxacin HCL 5ml drops daily at home - non on formulary. Pharmacy is attempting to find proper replacement/will talk to patient to see if it is possible to bring in home medication. Patient awaiting outpatient placement for Dialysis. Once placement is secure, D/ C home with . Patient refuses to go to anywhere but home. Case Discussed with Dr. Calles <Jerome Calles - Last Filed: 12/13/16 15:09> Objective - Vital Signs/Intake and Output Vital Signs (last 24 hours): Temp Pulse Resp BP Pulse Ox 97.8 F 68 18 106/58 L 96 12/13/16 09:30 12/13/16 12:30 12/13/16 09:30 12/13/16 12:30 12/13/16 12:30 Intake and Output: 12/13/16 12/13/16 06:59 18:59 Intake Total 100 Balance 100 - Medications Medications: Current Medications Amlodipine Besylate (Norvasc) 10 mg PO DAILY [facility] Last Admin: 12/13/16 12:40 Dose: Not Given Artificial Tears (Artificial Tears) 0 ml OU Q4H PRN PRN Reason: Dry eyes Aspirin (Ecotrin) 81 mg PO DAILY [facility] Last Admin: 12/13/16 12:40 Dose: Not Given Carvedilol (Coreg) 25 mg PO BID [facility] Last Admin: 12/13/16 10:03 Dose: Not Given Glimepiride (Amaryl) 4 mg PO BID [facility] Last Admin: 12/13/16 12:40 Dose: Not Given Heparin Sodium (Porcine) (Heparin) 5,000 units SC Q8 [facility] Last Admin: 12/06/16 22:26 Dose: 5,000 units Hydralazine HCl (Apresoline) 50 mg PO BID [facility] Last Admin: 12/13/16 10:03 Dose: Not Given Insulin Glargine (Lantus) 15 unit SC DAILY [facility] Last Admin: 12/13/16 12:40 Dose: Not Given Insulin Glargine (Lantus) 30 unit SC HS [facility] Last Admin: 12/12/16 21:50 Dose: Not Given Losartan Potassium (Cozaar) 25 mg PO DAILY [facility] Last Admin: 12/13/16 12:39 Dose: Not Given Oxycodone/Acetaminophen (Percocet 5/325 Mg Tab) 1 tab PO Q6H PRN PRN Reason: Pain, severe (8-10) Stop: 12/15/16 17:13 Last Admin: 12/12/16 17:25 Dose: 1 tab Potassium Chloride (K-Dur 20 Meq Er Tab) 40 meq PO DAILY [facility] Last Admin: 12/13/16 12:40 Dose: Not Given Rosuvastatin Calcium (Crestor) 10 mg PO [facility] Last Admin: 12/12/16 21:50 Dose: 10 mg - Labs Labs: 12/13/16 07:00 12/13/16 07:00 PT 12.3 SECONDS (9.7-12.2) H 12/09/16 07:21 INR 1.1 12/09/16 07:21 APTT 33 SECONDS (21-34) 12/09/16 07:21 Attending/Attestation - Attestation I have personally seen and examined this patient.: Yes I have fully participated in the care of the patient.: Yes I have reviewed all pertinent clinical information, including history, physical exam and plan: Yes Notes (Text): 12/13/16 15:07 Medical Attending : Patient was seen and examined by me. Agree with the above note by the medical lab tech instructor. We saw the patient at . He was doing at his baseline. He did not report any new changes or concerns. Per inspection of left arm/wrist area of the new AVF he did not have pain. The dressing was dry intact, clean. He was able to open and close his hand. At this moment he does not want [facility]. He wishes to go home when an outpatient HD center becomes available and will accept his case thank you Jerome Calles
[2016-12-14 06:24] LABS: BASO # 0.1 K/uL (0.0-0.2); BASO % 0.6 % (0.0-2.0); EOS # 0.3 K/uL (0.0-0.7); EOS % 3.3 % (0.0-4.0); HEMATOCRIT 30.6 % (35.0-51.0); LYMPH # 2.8 K/uL (1.0-4.3); LYMPH % 31.6 % (20.0-40.0); MEAN CELL VOLUME 87.5 fL (80.0-94.0); MEAN CORPUSCULAR HEMOGLOBIN 30.4 pg (27.0-31.0); MEAN CORPUSCULAR HGB CONC 34.7 g/dL (33.0-37.0); MEAN PLATELET VOLUME 7.3 fL (7.2-11.7); MONO % 10.9 % (0.0-10.0); RED CELL DISTRIBUTION WIDTH 13.5 % (11.5-14.5)
[2016-12-14 06:30] LABS: POTASSIUM 3.8 mmol/L (3.6-5.2)
[2016-12-14 06:32] LABS: ALB/GLOB RATIO 0.9 (1.0-2.1); BILIRUBIN,TOTAL 0.6 mg/dL (0.2-1.3); TOTAL PROTEIN 6.6 g/dL (6.3-8.3)
[2016-12-14 06:33] LABS: CALCIUM 8.7 mg/dl (8.6-10.4)
[2016-12-14] MEDS: Potassium Chloride 20 mEq ER Tab PO SCH (09:00)
[2016-12-14] MEDS: (Lantus) Insulin Glargine, Recombinant SC SCH (09:01)
[2016-12-14] MEDS: Oxycodone/Acetaminophen 5/325 mg Tab PO PRN (09:06)
--- NOTE | 2016-12-14 10:18 | CP.PCM.PN ---
Subjective - Date & Time of Evaluation Date of Evaluation: 12/14/16 Time of Evaluation: 10:15 - Subjective Subjective: awake alert comfortable no complaints about dialysis last PM bp elevated ROS Pain over fistula otherwise entire 10 point ROS negative Objective - Vital Signs/Intake and Output Vital Signs (last 24 hours): Temp Pulse Resp BP Pulse Ox 98.1 F 65 18 179/85 H 96 12/14/16 07:05 12/14/16 08:06 12/14/16 07:05 12/14/16 09:01 12/14/16 07:05 Intake and Output: 12/14/16 12/14/16 06:59 18:59 Intake Total 160 Balance 160 - Medications Medications: Current Medications Amlodipine Besylate (Norvasc) 10 mg PO DAILY [facility] Last Admin: 12/14/16 09:00 Dose: 10 mg Artificial Tears (Artificial Tears) 0 ml OU Q4H PRN PRN Reason: Dry eyes Aspirin (Ecotrin) 81 mg PO DAILY [facility] Last Admin: 12/14/16 09:01 Dose: 81 mg Carvedilol (Coreg) 25 mg PO BID [facility] Last Admin: 12/14/16 09:01 Dose: 25 mg Glimepiride (Amaryl) 4 mg PO BID [facility] Last Admin: 12/14/16 09:00 Dose: 4 mg Heparin Sodium (Porcine) (Heparin) 5,000 units SC Q8 [facility] Last Admin: 12/06/16 22:26 Dose: 5,000 units Hydralazine HCl (Apresoline) 50 mg PO BID [facility] Last Admin: 12/14/16 09:01 Dose: 50 mg Insulin Glargine (Lantus) 15 unit SC DAILY [facility] Last Admin: 12/14/16 09:01 Dose: 15 units Insulin Glargine (Lantus) 30 unit SC HS [facility] Last Admin: 12/13/16 22:43 Dose: 30 units Losartan Potassium (Cozaar) 25 mg PO DAILY [facility] Last Admin: 12/14/16 09:00 Dose: 25 mg Oxycodone/Acetaminophen (Percocet 5/325 Mg Tab) 1 tab PO Q6H PRN PRN Reason: Pain, severe (8-10) Stop: 12/15/16 17:13 Last Admin: 12/14/16 09:06 Dose: 1 tab Potassium Chloride (K-Dur 20 Meq Er Tab) 40 meq PO DAILY [facility] Last Admin: 12/14/16 09:00 Dose: 40 meq Rosuvastatin Calcium (Crestor) 10 mg PO HS [facility] Last Admin: 12/13/16 22:43 Dose: 10 mg - Labs Labs: 12/14/16 06:09 12/14/16 06:09 PT 12.3 SECONDS (9.7-12.2) H 12/09/16 07:21 INR 1.1 12/09/16 07:21 APTT 33 SECONDS (21-34) 12/09/16 07:21 - Constitutional Appears: No Acute Distress - ENT Exam ENT Exam: Mucous Membranes Moist - Respiratory Exam Respiratory Exam: Clear to Ausculation Bilateral. absent: Accessory Muscle Use - Cardiovascular Exam Cardiovascular Exam: REGULAR RHYTHM. absent: JVD - GI/Abdominal Exam GI & Abdominal Exam: Soft. absent: Distended, Tenderness - Extremities Exam Extremities Exam: absent: Calf Tenderness, Pedal Edema - Psychiatric Exam Psychiatric exam: Flat Affect - Additional Findings Additional findings: fistula patent left wrist Assessment and Plan (1) Diabetic nephropathies Status: Acute (2) ESRD (end stage renal disease) Status: Acute (3) Hypertension Assessment & Plan: await outpatient dialysis placement valsartan just added next dialysis 12/16 Status: Acute
--- NOTE | 2016-12-14 11:12 | CP.PCM.DIS ---
<John David - Last Filed: 12/14/16 11:00> Provider - Provider Date of Admission: 12/06/16 17:29 Attending physician: Jerome Calles DO Time Spent in preparation of Discharge (in minutes): 45 Hospital Course - Lab Results Lab Results: Most Recent Lab Values WBC 9.0 K/uL (4.8-10.8) 12/14/16 06:09 RBC 3.50 Mil/uL (4.40-5.90) L 12/14/16 06:09 Hgb 10.6 g/dL (12.0-18.0) L 12/14/16 06:09 Hct 30.6 % (35.0-51.0) L 12/14/16 06:09 MCV 87.5 fL (80.0-94.0) 12/14/16 06:09 MCH 30.4 pg (27.0-31.0) 12/14/16 06:09 MCHC 34.7 g/dL (33.0-37.0) 12/14/16 06:09 RDW 13.5 % (11.5-14.5) 12/14/16 06:09 Plt Count 333 K/uL (130-400) 12/14/16 06:09 MPV 7.3 fL (7.2-11.7) 12/14/16 06:09 Neut % (Auto) 53.6 % (50.0-75.0) 12/14/16 06:09 Lymph % (Auto) 31.6 % (20.0-40.0) 12/14/16 06:09 [place] % (Auto) 10.9 % (0.0-10.0) H 12/14/16 06:09 Eos % (Auto) 3.3 % (0.0-4.0) 12/14/16 06:09 Baso % (Auto) 0.6 % (0.0-2.0) 12/14/16 06:09 Neut # 4.8 K/uL (1.8-7.0) 12/14/16 06:09 Lymph # 2.8 K/uL (1.0-4.3) 12/14/16 06:09 [place] # 1.0 K/uL (0.0-0.8) H 12/14/16 06:09 Eos # 0.3 K/uL (0.0-0.7) 12/14/16 06:09 Baso # 0.1 K/uL (0.0-0.2) 12/14/16 06:09 PT 12.3 SECONDS (9.7-12.2) H 12/09/16 07:21 INR 1.1 12/09/16 07:21 APTT 33 SECONDS (21-34) 12/09/16 07:21 Sodium 137 mmol/L (132-148) 12/14/16 06:09 Potassium 3.8 mmol/L (3.6-5.2) 12/14/16 06:09 Chloride 97 mmol/L (98-107) L 12/14/16 06:09 Carbon Dioxide 28 mmol/L (22-30) 12/14/16 06:09 Anion Gap 16 (10-20) 12/14/16 06:09 BUN 29 mg/dL (9-20) H 12/14/16 06:09 Creatinine 4.1 MG/DL (0.8-1.5) H 12/14/16 06:09 Est GFR ( Amer) 18 12/14/16 06:09 Est GFR (Non-Af Amer) 15 12/14/16 06:09 POC Glucose (mg/dL) 95 mg/dL (65-110) 12/14/16 06:20 Random Glucose 101 mg/dL (75-110) 12/14/16 06:09 Hemoglobin A1c 8.0 % (4.2-6.5) H 12/07/16 07:12 Calcium 8.7 mg/dl (8.6-10.4) 12/14/16 06:09 Phosphorus 5.0 mg/dL (2.5-4.5) H 12/09/16 07:21 Magnesium 1.7 mg/dL (1.6-2.3) 12/09/16 07:21 % Saturation 16 (20-55) L 12/09/16 11:29 Ferritin 111.0 ng/mL 12/09/16 11:29 Total Bilirubin 0.6 mg/dL (0.2-1.3) 12/14/16 06:09 AST 16 U/L (17-59) L 12/14/16 06:09 ALT 16 U/L (21-72) L 12/14/16 06:09 Alkaline Phosphatase 87 U/L (38-126) 12/14/16 06:09 NT-Pro-B Natriuret Pep 4110 pg/mL (0-900) H 12/06/16 16:53 Total Protein 6.6 g/dL (6.3-8.3) 12/14/16 06:09 Albumin 3.1 g/dL (3.5-5.0) L 12/14/16 06:09 Globulin 3.5 gm/dL (2.2-3.9) 12/14/16 06:09 Albumin/Globulin Ratio 0.9 (1.0-2.1) L 12/14/16 06:09 Triglycerides 156 mg/dL (0-149) H 12/07/16 07:12 Cholesterol 108 mg/dL (0-199) 12/07/16 07:12 LDL Cholesterol Direct 43 mg/dL (0-129) 12/07/16 07:12 HDL Cholesterol 31 mg/dL (30-70) 12/07/16 07:12 PTH Intact Whole Molec 243 pg/mL (14-64) H 12/09/16 11:29 Calcium (PTH Intact) 9.1 mg/dL (8.6-10.3) 12/07/16 11:20 PTH w/Ion &Tot Calcium 260 pg/mL (14-64) H 12/07/16 11:20 Urine Color Yellow (YELLOW) 12/06/16 17:01 Urine Clarity Clear (Clear) 12/06/16 17:01 Urine pH 5.0 (5.0-8.0) 12/06/16 17:01 Ur Specific [place] 1.012 (1.003-1.030) 12/06/16 17:01 Urine Protein 3+ mg/dL (NEGATIVE) H 12/06/16 17:01 Urine Glucose (UA) 3+ mg/dL (Normal) H 12/06/16 17:01 Urine Ketones Negative mg/dL (NEGATIVE) 12/06/16 17:01 Urine Blood Negative (NEGATIVE) 12/06/16 17:01 Urine Nitrate Negative (NEGATIVE) 12/06/16 17:01 Urine Bilirubin Negative (NEGATIVE) 12/06/16 17:01 Urine Urobilinogen Normal mg/dL (0.2-1.0) 12/06/16 17:01 Ur Leukocyte Esterase Neg Su/uL (Negative) 12/06/16 17:01 Urine WBC (Auto) 2 /hpf (0-5) 12/06/16 17:01 Urine RBC (Auto) 1 /hpf (0-3) 12/06/16 17:01 Ur Squamous Epith Cells < 1 /hpf (0-5) 12/06/16 17:01 Urine Bacteria Rare (<OCC) 12/06/16 17:01 Hep Bs Antigen Negative (NEGATIVE) 12/07/16 11:20 Hep Bs Antibody Negative (NEGATIVE) 12/07/16 11:20 Hep B Core IgM Ab Negative (NEGATIVE) 12/07/16 11:20 Hepatitis C Antibody Negative (NEGATIVE) 12/07/16 11:20 Blood Type A POSITIVE 12/09/16 07:21 Antibody Screen Negative 12/09/16 07:21 - Hospital Course Hospital Course: As per admission documentation 66 year old male with a past medical history of Diabetes, CKD and HTN. Patient comes into the ED by the recommendation of Dr. Frausto who told the patient that his Creatinine was worsening, along with increased lower extremity edema. The patient states that he has been dealing with worsening renal function for a few years. He states that he retains fluid and his legs well at times, but usually he is able to go to the doctor, get lasix and have the swelling resolve. He noticed approximately 10 days ago that his legs were getting worsening and the medications were no longer helping. He states that he feels completely normal, except he says he feels fatigued at times. Patient states that he is able to walk without any feeling of being SOB. Denies f/c, n/v, d/c, cp, lightheadedness, dizziness, cough or sore throat. Patient has diabetic retinopathy and has very low to little visual acuity. Legally blind. Patient was admitted for worsening renal function and need for dialysis. Patient got a permacath placed by Dr. Larson the following morning (12/07) and received his first dialysis treatment the same day. Patient underwent AV fistula formation on 12/[address] Larson. He was started on a dialysis schedule of MWF while in the hospital. The patient's BP was elevated throughout most of his stay. His home diuretics, Furosemide (Lasix) and Metolazone ( Zaroxolyn), were discontinued per Dr. Frausto. He was started on Amlodipine Besylate (Norvasc) 10mg PO daily, Hydralazine Hcl 50mg PO BID, Losartan Potassium (Cozaar) 25mg PO daily, Crestor 10mg PO HS per Dr. Frausto. Patient's BP improved and remained stable throughout his hospital stay. Patient remained in the hospital awaiting outpatient dialysis placement. Patient's placement was confirmed on 12/[address] [address] [phone] FRIDAY, FRIDAY AND FRIDAY 1:50 PM. Patient was discharged on the morning of 12/14. Discharge Instructions Please discharge patient home, as per Dr. Calles. Patient is to continue home medications as instructed by his Primary Care Physician, Dr. Damon. Patient is to follow up with Dr. Damon within 1 week. Patient is to follow up with Dr. Frausto within 1 week. Patient is to follow up with Dr. Larson within 1 week. If symptoms worsen, patient is to return to the hospital for further evaluation and treatment. Instructions were explained to the patient. Patient understands and agrees. DIALYSIS SCHEDULE AT [address] [address] [phone] FRIDAY, FRIDAY AND FRIDAY 1:50 PM. Prescriptions given for: Amlodipine Besylate (Norvasc) 10mg PO daily Hydralazine Hcl 50mg PO BID Losartan Potassium (Cozaar) 25mg PO daily Crestor 10mg PO HS Please stop taking these home medications: Furosemide (Lasix) and Metolazone ( Zaroxolyn) Continue these home medications: Glimepiride 4mg PO BID Aspirin 81mg PO daily Carvedilol (Coreg) 25mg PO BID Besifloxacin HCl 5ml OP daily (eye drops) Lantus (insulin) 15units SC AM and 30units SC HS - Date & Time of H&P Date of H&P: 12/06/16 Time of H&P: 19:45 Discharge Exam - Head Exam Head Exam: ATRAUMATIC, NORMOCEPHALIC - Eye Exam Additional comments: Patient legally blind due to diabetic retinopathy. - ENT Exam ENT Exam: Mucous Membranes Moist - Respiratory Exam Respiratory Exam: Clear to PA & Lateral, NORMAL BREATHING PATTERN. absent: Accessory Muscle Use, Respiratory Distress - Cardiovascular Exam Cardiovascular Exam: REGULAR RHYTHM, +S1, +S2 - GI/Abdominal Exam GI & Abdominal Exam: Normal Bowel Sounds. absent: Distended, Firm, Guarding, Rebound - Extremities Exam Extremities exam: normal inspection Additional comments: no pitting edema, completely resolved. - Neurological Exam Neurological exam: Alert, Oriented x3 - Psychiatric Exam Psychiatric exam: Normal Affect, Normal Mood - Skin Skin Exam: Dry, Normal Color, Warm Discharge Plan - Discharge Medications Prescriptions: amLODIPine [Norvasc] 10 mg PO DAILY 30 Days Losartan [Cozaar] 25 mg PO DAILY 30 Days Rosuvastatin Calcium [Crestor] 10 mg PO HS 30 Days - Follow Up Plan Condition: SERIOUS Disposition: HOME/ ROUTINE Instructions: Hydralazine (By mouth), Amlodipine (By mouth), Losartan (By mouth ), Rosuvastatin (By mouth), Hemodialysis (DC), Renal Failure Diet (DC), Diabetes Mellitus Type 2 in Adults (DC), Diabetic Neuropathy (DC), End Stage Kidney Disease (DC) Additional Instructions: Please discharge patient home, as per Dr. Calles. Patient is to continue home medications as instructed by his Primary Care Physician, Dr. Damon. Patient is to follow up with Dr. Damon within 1 week. Patient is to follow up with Dr. Frausto within 1 week. Patient is to follow up with Dr. Larson within 1 week. If symptoms worsen, patient is to return to the hospital for further evaluation and treatment. Instructions were explained to the patient. Patient understands and agrees. DIALYSIS SCHEDULE AT [place] [address] [phone] FRIDAY, FRIDAY AND FRIDAY 1:50 PM. Prescriptions given for: Amlodipine Besylate (Norvasc) 10mg PO daily Hydralazine Hcl 50mg PO BID Losartan Potassium (Cozaar) 25mg PO daily Crestor 10mg PO HS Please stop taking these home medications: Furosemide (Lasix) and Metolazone ( Zaroxolyn) Continue these home medications: Glimepiride 4mg PO BID Aspirin 81mg PO daily Carvedilol (Coreg) 25mg PO BID Besifloxacin HCl 5ml OP daily (eye drops) Lantus (insulin) 15units SC AM and 30units SC HS Referrals: Nichol Damon MD [Staff Provider] - Joselito Larson Jr., MD [Staff Provider] - Krysta Frausto MD [Staff Provider] - Clinical Quality Measures - Date & Time of Discharge Summary Date of Discharge Summary: 12/14/16 Time of Discharge Summary: 11:10 <Jerome Calles - Last Filed: 12/15/16 07:42> Provider - Provider Date of Admission: 12/06/16 17:29 Attending physician: Jerome Calles, DO Hospital Course - Lab Results Lab Results: Most Recent Lab Values WBC 9.0 K/uL (4.8-10.8) 12/14/16 06:09 RBC 3.50 Mil/uL (4.40-5.90) L 12/14/16 06:09 Hgb 10.6 g/dL (12.0-18.0) L 12/14/16 06:09 Hct 30.6 % (35.0-51.0) L 12/14/16 06:09 MCV 87.5 fL (80.0-94.0) 12/14/16 06:09 MCH 30.4 pg (27.0-31.0) 12/14/16 06:09 MCHC 34.7 g/dL (33.0-37.0) 12/14/16 06:09 RDW 13.5 % (11.5-14.5) 12/14/16 06:09 Plt Count 333 K/uL (130-400) 12/14/16 06:09 MPV 7.3 fL (7.2-11.7) 12/14/16 06:09 Neut % (Auto) 53.6 % (50.0-75.0) 12/14/16 06:09 Lymph % (Auto) 31.6 % (20.0-40.0) 12/14/16 06:09 [place] % (Auto) 10.9 % (0.0-10.0) H 12/14/16 06:09 Eos % (Auto) 3.3 % (0.0-4.0) 12/14/16 06:09 Baso % (Auto) 0.6 % (0.0-2.0) 12/14/16 06:09 Neut # 4.8 K/uL (1.8-7.0) 12/14/16 06:09 Lymph # 2.8 K/uL (1.0-4.3) 12/14/16 06:09 [place] # 1.0 K/uL (0.0-0.8) H 12/14/16 06:09 Eos # 0.3 K/uL (0.0-0.7) 12/14/16 06:09 Baso # 0.1 K/uL (0.0-0.2) 12/14/16 06:09 PT 12.3 SECONDS (9.7-12.2) H 12/09/16 07:21 INR 1.1 12/09/16 07:21 APTT 33 SECONDS (21-34) 12/09/16 07:21 Sodium 137 mmol/L (132-148) 12/14/16 06:09 Potassium 3.8 mmol/L (3.6-5.2) 12/14/16 06:09 Chloride 97 mmol/L (98-107) L 12/14/16 06:09 Carbon Dioxide 28 mmol/L (22-30) 12/14/16 06:09 Anion Gap 16 (10-20) 12/14/16 06:09 BUN 29 mg/dL (9-20) H 12/14/16 06:09 Creatinine 4.1 MG/DL (0.8-1.5) H 12/14/16 06:09 Est GFR ( Amer) 18 12/14/16 06:09 Est GFR (Non-Af Amer) 15 12/14/16 06:09 POC Glucose (mg/dL) 95 mg/dL (65-110) 12/14/16 06:20 Random Glucose 101 mg/dL (75-110) 12/14/16 06:09 Hemoglobin A1c 8.0 % (4.2-6.5) H 12/07/16 07:12 Calcium 8.7 mg/dl (8.6-10.4) 12/14/16 06:09 Phosphorus 5.0 mg/dL (2.5-4.5) H 12/09/16 07:21 Magnesium 1.7 mg/dL (1.6-2.3) 12/09/16 07:21 % Saturation 16 (20-55) L 12/09/16 11:29 Ferritin 111.0 ng/mL 12/09/16 11:29 Total Bilirubin 0.6 mg/dL (0.2-1.3) 12/14/16 06:09 AST 16 U/L (17-59) L 12/14/16 06:09 ALT 16 U/L (21-72) L 12/14/16 06:09 Alkaline Phosphatase 87 U/L (38-126) 12/14/16 06:09 NT-Pro-B Natriuret Pep 4110 pg/mL (0-900) H 12/06/16 16:53 Total Protein 6.6 g/dL (6.3-8.3) 12/14/16 06:09 Albumin 3.1 g/dL (3.5-5.0) L 12/14/16 06:09 Globulin 3.5 gm/dL (2.2-3.9) 12/14/16 06:09 Albumin/Globulin Ratio 0.9 (1.0-2.1) L 12/14/16 06:09 Triglycerides 156 mg/dL (0-149) H 12/07/16 07:12 Cholesterol 108 mg/dL (0-199) 12/07/16 07:12 LDL Cholesterol Direct 43 mg/dL (0-129) 12/07/16 07:12 HDL Cholesterol 31 mg/dL (30-70) 12/07/16 07:12 PTH Intact Whole Molec 243 pg/mL (14-64) H 12/09/16 11:29 Calcium (PTH Intact) 9.1 mg/dL (8.6-10.3) 12/07/16 11:20 PTH w/Ion &Tot Calcium 260 pg/mL (14-64) H 12/07/16 11:20 Urine Color Yellow (YELLOW) 12/06/16 17:01 Urine Clarity Clear (Clear) 12/06/16 17:01 Urine pH 5.0 (5.0-8.0) 12/06/16 17:01 Ur Specific [place] 1.012 (1.003-1.030) 12/06/16 17:01 Urine Protein 3+ mg/dL (NEGATIVE) H 12/06/16 17:01 Urine Glucose (UA) 3+ mg/dL (Normal) H 12/06/16 17:01 Urine Ketones Negative mg/dL (NEGATIVE) 12/06/16 17:01 Urine Blood Negative (NEGATIVE) 12/06/16 17:01 Urine Nitrate Negative (NEGATIVE) 12/06/16 17:01 Urine Bilirubin Negative (NEGATIVE) 12/06/16 17:01 Urine Urobilinogen Normal mg/dL (0.2-1.0) 12/06/16 17:01 Ur Leukocyte Esterase Neg Su/uL (Negative) 12/06/16 17:01 Urine WBC (Auto) 2 /hpf (0-5) 12/06/16 17:01 Urine RBC (Auto) 1 /hpf (0-3) 12/06/16 17:01 Ur Squamous Epith Cells < 1 /hpf (0-5) 12/06/16 17:01 Urine Bacteria Rare (<OCC) 12/06/16 17:01 Hep Bs Antigen Negative (NEGATIVE) 12/07/16 11:20 Hep Bs Antibody Negative (NEGATIVE) 12/07/16 11:20 Hep B Core IgM Ab Negative (NEGATIVE) 12/07/16 11:20 Hepatitis C Antibody Negative (NEGATIVE) 12/07/16 11:20 Blood Type A POSITIVE 12/09/16 07:21 Antibody Screen Negative 12/09/16 07:21 Attending/Attestation - Attestation I have personally seen and examined this patient.: Yes I have fully participated in the care of the patient.: Yes I have reviewed all pertinent clinical information, including history, physical exam and plan: Yes Notes (Text): 12/15/16 07:39 Medical Attending: Patient was seen and examined by me. Agree with the above note by the resident. The patient awake and alert. He was answering questions slowly. As mentioned previously the patient is not able to see. He now has HD placement outpatient. As mentioned previously he wanted to go home and not to a [facility]. He will be dependent on family to bring him on his days of HD. He currently denies chest pain, denied palpitations, denies shortness of breath , and also denies left arm or hand discomort. The patient now has a left AVF as well, however as mentioned previoulsy this will take some time to mature. thank you, Jerome Calles
[2016-12-14 11:23] VITALS: BP 144/79; RESP 16; TEMP 98.3; O2SAT 98
[2016-12-14 11:57] VITALS: PULSE 60
[2016-12-14] MEDS ORDERED: Pneumococcal 23-Valent Vaccine IM ONE (12:00)
== END 2016-12-14 13:46 | disposition home or self-care (01) | DRG 674 ==
LOC: C.ER 15:48 → C.9E 17:29 → C.6T 19:09
PROVIDERS: ADMIT Hospitalist; ATTEND Hospitalist
PROC: 5A1D60Z (ICD-10-PCS; principal; 2016-12-06)
PROC: 02HV33Z Insertion of Infusion Device into Superior Vena Cava, Percutaneous Approach (ICD-10-PCS; 2016-12-07)
PROC: 03180AD Bypass Left Brachial Artery to Upper Arm Vein with Autologous Arterial Tissue, Open Approach (ICD-10-PCS; 2016-12-09)
DX: N17.9 Acute kidney failure, unspecified (principal); I12.0 Hypertensive chronic kidney disease with stage 5 chronic kidney disease or end stage renal disease; E11.21 Type 2 diabetes mellitus with diabetic nephropathy; E11.65 Type 2 diabetes mellitus with hyperglycemia; N18.6 End stage renal disease; E11.22 Type 2 diabetes mellitus with diabetic chronic kidney disease; Z79.4 Long term (current) use of insulin; F17.210 Nicotine dependence, cigarettes, uncomplicated; E11.319 Type 2 diabetes mellitus with unspecified diabetic retinopathy without macular edema; Z99.2 Dependence on renal dialysis; H54.8 Legal blindness, as defined in USA; D64.89 Other specified anemias